=== PATIENT | female | born 1940 | race African-American/Black ===

== ENCOUNTER → 2016-10-07 | Outpatient (CLI) | payer MEDICARE | LOC: RAD 07:56 | PROVIDERS: ATTEND Specialist | DX: C05.0 Malignant neoplasm of hard palate (principal) | CPT/HCPCS: 70491; 82565 ==

== ENCOUNTER → 2017-02-02 | Outpatient (CLI) | payer MEDICARE ==
--- NOTE | 2017-02-02 13:16 | RADIOLOGY REPORT (SQ) ---
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 Reconstructed coronal and sagittal MPR images reviewed. All images stored on PACS. All CT scanners at this facility use dose modulation, iterative reconstruction, and/or weight based d osing when appropriate to reduce radiation dose to as low as reasonably achievable (ALARA). [facility]: Dose Right [facility]: CareDose [facility]: Dose Right [facility]: Teradose 4D [facility]: Informous CONTRAST TYPE AND DOSE: contrast/concentration: Isovue 370.00 mg/ml; Total Contrast Delivered: 75.0 ml; Total Saline Delivered: 55.0 ml RENAL FUNCTION: Creatinine 0.8 RADIATION DOSE: 18.6 . LIMITATIONS: None. FINDINGS: Patient is post resection of the right hard palate, medial wall maxillary sinus, nasal sep edelmira, and right maxillary alveolar ridge. SKULL BASE: Old right temporal craniotomy. Inferior brain parenchyma in the field of view unremarkab le. MAJOR SALIVARY GLANDS: No solid or cystic masses. No inflammatory changes. LYMPHADENOPATHY: No adenopathy. MUCOSAL MASSES OR ASYMMETRY: No mucosal masses or asymmetry. LARYNX/CORDS: No abnormal findings. VASCULAR STRUCTURES: The major vessels are patent. LUNG APICES: Clear. BONES: Diffuse degenerative changes in the cervical spine THYROID: Stable 8 mm right lobe thyroid nodule, 7 mm thyroid isthmus nodule, 11 mm left lobe thyroid nodule PARANASAL SINUSES: Clear. OTHER: No other significant finding. IMPRESSION: Postsurgical changes. No CT evidence of recurrent tumor TECHNICAL DOCUMENTATION: JOB ID: [id number] Quality ID # [id number]: Final reports with documentation of one or more dose reduction techniques (e.g., Au tomated exposure control, adjustment of the mA and/or kV according to patient size, use of iterative reconstruction technique) 2010 [employer]- All Rights Reserved
== END ==
LOC: RAD 08:02
PROVIDERS: ATTEND Specialist
DX: C05.0 Malignant neoplasm of hard palate (principal)
CPT/HCPCS: 70491

== ENCOUNTER → 2017-03-17 | Outpatient (CLI) | payer MEDICARE ==
--- NOTE | 2017-03-17 10:33 | RADIOLOGY REPORT (SQ) ---
EXAM DESCRIPTION: U/S ABD AORTIC SCREENING COMPLETED DATE/TIME: 03/17/2017 8:46 am REASON FOR STUDY: ENCOUNTER FOR SCREENING FOR CARDIOVASCULAR DISORDERS Z87.891 PERSONAL HISTORY OF NICOTINE DEPENDENCE Z13.6 ENCOUNTER FOR SCREENING FOR CARDIOVASCULAR DISORDERS COMPARISON: None. TECHNIQUE: Static and dynamic grayscale images acquired of the aorta and stored on PACs. Selected co chantel Doppler and spectral images recorded. LIMITATIONS: None. FINDINGS: AORTIC CALIBER MAXIMAL PROXIMAL: 2.2 cm. MID: 2.0 cm. DISTAL: 1.9 cm. ILIAC DIAMETER RIGHT: 1.2 cm. LEFT: 1.0 cm. OTHER: No other significant finding. IMPRESSION: NO ABDOMINAL AORTIC ANEURYSM. TECHNICAL DOCUMENTATION: JOB ID: [id number] [employer]- All Rights Reserved
== END ==
LOC: RAD 08:03
PROVIDERS: ATTEND Physician Assistant
DX: Z13.6 Encounter for screening for cardiovascular disorders (principal); Z87.891 Personal history of nicotine dependence
CPT/HCPCS: 76706

== ENCOUNTER → 2017-04-22 | Outpatient (CLI) | payer MEDICARE ==
--- NOTE | 2017-04-22 10:55 | WOMENS IMAGING REPORT ---
EXAM DESCRIPTION: BONE DENSITY HIP/SPINE COMPLETED DATE/TIME: 04/22/2017 8:57 am REASON FOR STUDY: AGE-RELATED OSTEOPROSIS;M81.0 Z12.31 ENCNTR SCREEN MAMMOGRAM FOR MALIGNANT NEOPLA SM OF MELISSA M81.0 AGE-RELATED OSTEOPOROSIS W/O CURRENT PATHOLOGICAL FRAC COMPARISON: None. TECHNIQUE: Dual-Energy X-ray Absorptiometry (DEXA) of the AP Spine and Hip. LIMITATIONS: None. FINDINGS: LUMBAR SPINE: The bone mineral density (BMD) measured from L1-L4 in the AP projection correlates with a T-score of +1.8, which is normal as defined by the World Health Organization. Please note that this does includ e vertebral body endplate sclerosis and facet arthropathy HIP: The bone mineral density (BMD) measured in the left femoral neck at the hip correlates with a T-score of -1.5, which is osteopenic as defined by the World Health Organization. IMPRESSION: 1. LUMBAR SPINE: Normal 2. HIP: Osteopenic COMMENT: The World Health Organization defines low BMD as follows: T-score: Normal: Greater than -1.0 Osteopenia: Between -1.0 and -2.5 Osteoporosis: Less than -2.5 without fractures Established osteoporosis: Less than -2.5 with fractures In general, you may wish to consider: Diagnosis Treatment Follow-up DEXA Normal BMD Prevention 2-3 years Osteopenia Prevention/Therapy 1-2 years Osteoporosis Therapy Yearly TECHNICAL DOCUMENTATION: JOB ID: [id number] [employer]- All Rights Reserved
--- NOTE | 2017-04-22 19:15 | WOMENS IMAGING REPORT ---
EXAM DESCRIPTION: 3D SCREENING MAMMO BILAT COMPLETED DATE/TIME: 04/22/2017 8:57 am REASON FOR STUDY: ROUTINE SCREENING; Z12.31 Z12.31 ENCNTR SCREEN MAMMOGRAM FOR MALIGNANT NEOPLASM O F MELISSA M81.0 AGE-RELATED OSTEOPOROSIS W/O CURRENT PATHOLOGICAL FRAC COMPARISON: Multiple since 2008 TECHNIQUE: Standard craniocaudal and mediolateral oblique views of each breast recorded using digita l acquisition and breast tomosynthesis. LIMITATIONS: None. FINDINGS: No masses, calcifications or architectural distortion. No areas of suspicion. Read with the assistance of CAD. .[facility] - R2 Cenova Version 1.3 .[facility] - R2 Cenova Version 1.3 .[facility] - R2 Cenova Version 2.4 .[facility] [place]2 Cenova Version 2.4 .[facility] - R2 Ble[employer] Maker Version 9.2 IMPRESSION: NORMAL MAMMOGRAM. BIRADS 1. BREAST DENSITY: b. There are scattered areas of fibroglandular density. BIRAD: 1 NEGATIVE RECOMMENDATION: ROUTINE SCREENING Please continue yearly bilateral screening tomosynthesis in March 2018 COMMENT: The patient has been notified of the results by letter per SA requirements. Additional no tification policies are in place for contacting patient with suspicious or incomplete findings. Quality ID #225: The [employer] recommends an annual screening mammogram for women aged 40 years or over. This facility utilizes a reminder system to ensure that all patients receive reminder letters, and/or direct phone calls for appointments. This includes reminders for routine scr eening mammograms, diagnostic mammograms, or other Breast Imaging Interventions when appropriate. Th is patient will be placed in the appropriate reminder system. The [employer] (ACR) has developed recommendations for screening MRI of the breast s in certain patient populations, to be used in conjunction with mammography. Breast MRI surveillanc e may be appropriate for women with more than 20% lifetime risk of developing breast cancer as deter mined by genetic testing, significant family history of the disease, or history of mantle radiation f or Hodgkins Disease. ACR Practice Guidelines 2008. DBT Technology DBT is a type of tomographic mammography. With conventional mammography, overlapping breast tissue ma y make lesions difficult to detect, even with good compression. DBT uses an x-ray tube that rotates a round the breast, taking images at different angles. These images are then combined to create thin sl ices of the breast that the radiologist can view as a 3D reconstruction. The [employer] unit can perform full-field digital mammograms (2D imaging); or DBT (3D imaging); or both, in a combination mode that quickly performs both the mammogram and the tomosynthesis scan while the breast is still compressed. PQRS 6045F: Fluoroscopic imaging is not utilized for breast tomosynthesis. TECHNICAL DOCUMENTATION: FINDING NUMBER: (1) ASSESSMENT: (1) JOB ID: [id number] [employer]- All Rights Reserved
== END ==
LOC: WI 08:37
PROVIDERS: ATTEND Physician Assistant
DX: Z12.31 Encounter for screening mammogram for malignant neoplasm of breast (principal); M81.0 Age-related osteoporosis without current pathological fracture
CPT/HCPCS: 77063; 77080; G0202; 77067

== ENCOUNTER → 2017-05-08 | Outpatient (CLI) | payer MEDICARE ==
--- NOTE | 2017-05-08 10:56 | RADIOLOGY REPORT (SQ) ---
EXAM DESCRIPTION: LUMBAR SPINE COMPLETE COMPLETED DATE/TIME: 05/08/2017 10:29 am REASON FOR STUDY: LOW BACK PAIN M54.5 LOW BACK PAIN COMPARISON: None. NUMBER OF VIEWS: Five views including obliques. TECHNIQUE: AP, lateral, oblique, and sacral radiographic images acquired of the lumbar spine. LIMITATIONS: None. FINDINGS: MINERALIZATION: Normal. SEGMENTATION: Normal. No transitional anatomy. ALIGNMENT: Normal. VERTEBRAE: Maintained height. No fracture or worrisome bone lesion. DISCS: Severe disc degeneration L1-L2, L2-L3. Moderate L3-L4. Mild L5-S1. POSTERIOR ELEMENTS: Moderate to severe multilevel facet arthropathy HARDWARE: None in the spine. PARASPINAL SOFT TISSUES: Normal. PELVIS: Intact as visualized. No fractures or worrisome bone lesions. SI joints intact. OTHER: No other significant finding. IMPRESSION: Multilevel moderate to severe disc degeneration except mild at L5-S1. Multilevel facet arthropathy. TECHNICAL DOCUMENTATION: JOB ID: [id number] [employer]- All Rights Reserved
== END ==
LOC: OD 10:05
PROVIDERS: ATTEND Family Medicine
DX: M54.5 Low back pain (principal)
CPT/HCPCS: 72110

== ENCOUNTER → 2017-06-12 | Outpatient (CLI) | payer MEDICARE ==
--- NOTE | 2017-06-12 09:56 | RADIOLOGY REPORT (SQ) ---
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 Reconstructed coronal and sagittal MPR images reviewed. All images stored on PAC S. All CT scanners at this facility use dose modulation, iterative reconstruction, and/or weight based d osing when appropriate to reduce radiation dose to as low as reasonably achievable (ALARA). [facility]: Dose Right [facility]: CareDose [facility]: Dose Right [facility]: Teradose 4D [facility]: Whole Optics RADIATION DOSE: 18.6 mGy. 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 The patient was scanned with the palate prosthesis in place. There is no lumpy soft tissue worrisome for recurrence along the right posterior nasal floor on axial images 25-29. SKULL BASE: Intact. MAJOR SALIVARY GLANDS: No solid or cystic masses. No inflammatory changes. LYMPHADENOPATHY: No adenopathy. MUCOSAL MASSES OR ASYMMETRY: No mucosal masses or asymmetry. LARYNX/CORDS: No abnormal findings. LUNG APICES: Clear. BONES: Intact. THYROID: Normal size. Heterogeneously dense without discrete mass. PARANASAL SINUSES: No air-fluid levels worrisome for sinusitis. No mucosal nodularity worrisome for recurrent tumor. Minimal stable mucous membrane thickening in the posterior aspect of the right and left maxillary sinuses. Post resection of the lower half of the nasal septum, right hard palate, med ial wall right maxillary sinus, right inferior turbinate. OTHER: No other significant finding. IMPRESSION: Limited study. No CT evidence of recurrent right hard palate tumor of on today's study. No cervical adenopathy. TECHNICAL DOCUMENTATION: JOB ID: [id number] Quality ID # 436: Final reports with documentation of one or more dose reduction techniques (e.g., Au tomated exposure control, adjustment of the mA and/or kV according to patient size, use of iterative reconstruction technique) 2010 [employer]- All Rights Reserved
== END ==
LOC: RAD 07:42
PROVIDERS: ATTEND Internal Medicine
DX: C05.0 Malignant neoplasm of hard palate (principal)
CPT/HCPCS: 70490

== ENCOUNTER 2017-07-29 07:28 | Day surgery (SDC) | payer MEDICARE ==
[~2017-07-29 07:28] MED LIST: CHONDR SU A NA/HYALUR INTRAOC KIT (SURGICARE) ONE; EPINEPHRINE INJ/PF 1 MG/1 ML AMPULE ONE; FENTANYL CITRATE INJ/PF 100 MCG/2 ML AMPUL ONE; KETOROLAC TROMETHAMINE 0.45% 4 DROP/0.4 ML DROPERETTE OS PRN; LIDOCAINE 1% INJ-PF (10 MG/ML) 30 ML SDV ONE; MIDAZOLAM 2 MG/2 ML INJ ONE; ONDANSETRON HCL INJ/PF 4 MG/2 ML SDV ONE
[2017-07-29] MEDS: TETRACAINE HCL 0.5% OPH SOLN 0.6 ML DROPERETTE OS PRN ×3 (07:52→08:10)
[2017-07-29] MEDS: CYCLOPENTOLATE 0.2%/PHENYLEPHRINE 1% OPH SOLN 2 ML OS PRN ×3 (07:52→08:08)
[2017-07-29] MEDS: TROPICAMIDE 1% OPH SOLN 3 ML OS PRN ×3 (07:53→08:08)
[2017-07-29] MEDS: BESIFLOXACIN HCL 0.6% OPH SUSP 5 ML BOTTLE OS PRN ×4 (07:53→08:39)
[2017-07-29] MEDS: TOBRAMYCIN SULFATE/DEXAMETH OPH OINTMENT 3.5 GM ONE ×2 (08:39)
[2017-07-29] MEDS ORDERED: CHONDR SU A NA/HYALUR SOD 0.5 ML DISP.SYRIN ONE (14:26)
== END 2017-07-29 09:41 | disposition home or self-care (01) ==
LOC: SC 07:28
PROVIDERS: ATTEND Ophthalmology
PROC: 089330Z Drainage of Left Anterior Chamber with Drainage Device, Percutaneous Approach (ICD-10-PCS; 2017-07-29)
PROC: 08RK3JZ Replacement of Left Lens with Synthetic Substitute, Percutaneous Approach (ICD-10-PCS; principal; 2017-07-29 08:15)
DX: H25.12 Age-related nuclear cataract, left eye (principal); H40.1121 Primary open-angle glaucoma, left eye, mild stage; M19.90 Unspecified osteoarthritis, unspecified site; E11.9 Type 2 diabetes mellitus without complications; I10 Essential (primary) hypertension; E78.00 Pure hypercholesterolemia, unspecified; Z79.82 Long term (current) use of aspirin; Z79.899 Other long term (current) drug therapy; Z79.84 Long term (current) use of oral hypoglycemic drugs; F17.210 Nicotine dependence, cigarettes, uncomplicated; K21.9 Gastro-esophageal reflux disease without esophagitis; Z85.828 Personal history of other malignant neoplasm of skin
CPT/HCPCS: 66984; 0191T; 82962; C1783; V2630; J2250; J3490 ×4; A9270; J0171; J3010; J2405; 142

== ENCOUNTER 2017-08-05 20:56 | Emergency (ER) | payer MEDICARE ==
[2017-08-05 23:26] LABS: ABSOLUTE BASOPHILS # (AUTO) 0.1 10^3/uL (0.0-0.2); ABSOLUTE EOSINOPHILS # (AUTO) 0.3 10^3/uL (0.0-0.6); ABSOLUTE LYMPHOCYTES (AUTO) 0.6 10^3/uL (0.5-4.7); ABSOLUTE MONOCYTES (AUTO) 0.5 10^3/uL (0.1-1.4); ABSOLUTE NEUT (AUTO) 3.7 10^3/uL (1.7-8.2); BASOPHILS % (AUTO) 1.5 % (0-2); EOSINOPHILS % (AUTO) 6.6 % (0-6); HEMATOCRIT 34.5 % (36.0-47.0); HEMOGLOBIN 11.1 g/dL (12.0-15.5); LYMPHOCYTES % (AUTO) 10.7 % (13-45); MEAN CORPUSCULAR HEMOGLOBIN 29.7 pg (27.0-33.4); MEAN CORPUSCULAR HGB CONC 32.2 g/dL (32.0-36.0); MEAN CORPUSCULAR VOLUME 92 fl (80-97); MONOCYTES % (AUTO) 9.3 % (3-13); PLATELET COUNT 393 10^3/uL (150-450); RED BLOOD COUNT 3.75 10^6/uL (3.72-5.28); SEGMENTED NEUTROPHILS % (AUTO) 71.9 % (42-78); TOTAL CELLS COUNTED % (AUTO) 100 %; WHITE BLOOD COUNT 5.2 10^3/uL (4.0-10.5)
[2017-08-05 23:30] LABS: PROTHROMBIN TIME 12.8 SEC (11.4-15.4)
[2017-08-05 23:31] LABS: PARTIAL THROMBOPLASTIN TIME 32.9 SEC (23.5-35.8)
[2017-08-05 23:37] LABS: ALANINE AMINOTRANSFERASE 11 U/L (9-52); ALKALINE PHOSPHATASE 86 U/L (38-126); ANION GAP 11 (5-19); ASPARTATE AMINO TRANSFERASE 18 U/L (14-36); BILIRUBIN,DIRECT 0.3 mg/dL (0.0-0.4); BILIRUBIN,TOTAL 0.3 mg/dL (0.2-1.3); BLOOD UREA NITROGEN 17 mg/dL (7-20); CALCIUM 10.2 mg/dL (8.4-10.2); CARBON DIOXIDE 28 mmol/L (22-30); CHLORIDE 106 mmol/L (98-107); GLUCOSE 91 mg/dL (75-110); POTASSIUM 4.2 mmol/L (3.6-5.0)
--- NOTE | 2017-08-06 03:26 | ER Document Report ---
HPI - HPI Patient complains to provider of: Nosebleed Pain Level: Denies Context: Patient is a 77-year-old female presents emergency department with a chief complaint of bleeding. Patient had a ear nose and throat resection of hard palate of her mouth for previous cancer that his left knee base of her nose exposed. She supposed to wear prosthesis when she eats. States that this evening she was eating an apple she cut it up she is trying to chew it got stuck in between her turbinates. Her daughter states that there is a lot of blood so they called EMS. Bleeding has since stopped and has not returned since the patient has been waiting in the lobby. She states she feels fine now on just 1 to have it looked at. - REPRODUCTIVE Reproductive: DENIES: : - DERM Skin Color: Normal Past Medical History - Social History Smoking Status: Former Smoker Chew tobacco use (# tins/day): No Frequency of alcohol use: Rare Drug Abuse: None Family History: Reviewed & Not Pertinent Patient has suicidal ideation: No Patient has homicidal ideation: No - Past Medical History Cardiac Medical History: Reports: Hx Hypercholesterolemia, Hx Hypertension Denies: Hx Heart Attack Pulmonary Medical History: Denies: Hx Asthma Neurological Medical History: Denies: Hx Cerebrovascular Accident, Hx Seizures Endocrine Medical History: Reports: Hx Diabetes Mellitus Type 2 Renal/ Medical History: Denies: Hx Peritoneal Dialysis GI Medical History: Denies: Hx Hepatitis, Hx Hiatal Hernia, Hx Ulcer Psychiatric Medical History: Denies: Hx Depression Infectious Medical History: Denies: Hx Hepatitis Past Surgical History: Reports: Hx Hysterectomy, Hx Nose Surgery. Denies: Hx Mastectomy, Hx Open Heart Surgery, Hx Pacemaker - Immunizations Hx Diphtheria, Pertussis, Tetanus Vaccination: Yes Vertical Provider Document - CONSTITUTIONAL Agree With Documented VS: Yes Notes: PHYSICAL EXAM GENERAL: Alert, interacts well. HEENT: NCAT, MMM, hard palate of the patient's mouth gone exposing her nasal turbinates without any evidence of active bleeding minimal blood clotting at the edge of the tissue. Uvula midline, no evidence of retropharyngeal dried blood down the posterior pharynx airway patent. No evidence of tonsillar enlargement, LUNGS: Clear to auscultation bilaterally, no wheezes, rales, or rhonchi. No respiratory distress. HEART: Regular rate and rhythm. No murmurs, gallops, or rubs. NEUROLOGICAL: Alert and oriented x4. Normal speech. PSYCH: Normal affect, normal mood. SKIN: Warm, dry, normal turgor. No rashes or lesions noted. - INFECTION CONTROL TRAVEL OUTSIDE OF THE [place] IN LAST 30 DAYS: No - RESPIRATORY O2 Sat by Pulse Oximetry: 100 Course - Re-evaluation Re-evalutation: 08/06/17 03:24 Patient is a 77-year-old female is hemodynamically stable, no acute distress and afebrile. Presentation this evening is consistent with a nosebleed secondary to trauma from chewing without her prosthesis. Discussed with family the anatomy of the nose and the sensitive blood vessels in place there. Discussed with the patient and family that if she cannot smash the food with a fork that she needs to use her prosthesis in order to protect this tissue from getting damaged in the future. Discussed with them to continue doing her home cleansing care as they normally do to follow-up with her primary care doctor and director of research center as scheduled. - Vital Signs Vital signs: Temp Pulse Resp BP Pulse Ox 98.1 F 81 20 145/77 H 100 08/05/17 20:56 08/05/17 20:56 08/05/17 20:56 08/05/17 20:56 08/05/17 20:56 - Laboratory Result Diagrams: 08/05/17 23:00 08/05/17 23:00 Laboratory results interpreted by me: 08/05/17 23:00 Hgb 11.1 L Hct 34.5 L RDW 16.0 H Lymphocytes % 10.7 L Eosinophils % 6.6 H Discharge - Discharge Clinical Impression: Epistaxis Condition: Good Disposition: HOME, SELF-CARE Additional Instructions: Your presentation to the ER today was consistent with hard foods being pressed against very sensitive tissue in your nose. If you cannot crush the food with a fork please use your prosthetic. Please return to the emergency department with any continued bleeding does not stop with any direct pressure otherwise follow-up with your primary care doctor. Referrals: CRISTOFER DÍAZ MD [Primary Care Provider] - Follow up as needed
[2017-08-06 03:47] VITALS: BP 130/67
== END 2017-08-06 03:50 | disposition home or self-care (01) ==
LOC: ER 20:56
DX: R04.0 Epistaxis (principal); E11.9 Type 2 diabetes mellitus without complications; I10 Essential (primary) hypertension; Z90.09 Acquired absence of other part of head and neck; Z85.9 Personal history of malignant neoplasm, unspecified; Z87.891 Personal history of nicotine dependence
CPT/HCPCS: 36415; 80053; 85025; 85610; 85730; 99283

== ENCOUNTER 2017-08-12 07:16 | Day surgery (SDC) | payer MEDICARE ==
[~2017-08-12 07:16] MED LIST changes: -CHONDR SU A NA/HYALUR INTRAOC KIT (SURGICARE) ONE; -EPINEPHRINE INJ/PF 1 MG/1 ML AMPULE ONE; -FENTANYL CITRATE INJ/PF 100 MCG/2 ML AMPUL ONE; +KETOROLAC TROMETHAMINE 0.45% 4 DROP/0.4 ML DROPERETTE OD PRN; -KETOROLAC TROMETHAMINE 0.45% 4 DROP/0.4 ML DROPERETTE OS PRN; -LIDOCAINE 1% INJ-PF (10 MG/ML) 30 ML SDV ONE; -MIDAZOLAM 2 MG/2 ML INJ ONE; -ONDANSETRON HCL INJ/PF 4 MG/2 ML SDV ONE
[2017-08-12] MEDS ORDERED: LIDOCAINE 1% INJ-PF (10 MG/ML) 30 ML SDV ONE (07:17)
[2017-08-12] MEDS ORDERED: CHONDR SU A NA/HYALUR INTRAOC KIT (SURGICARE) ONE (07:17)
[2017-08-12] MEDS ORDERED: EPINEPHRINE INJ/PF 1 MG/1 ML AMPULE ONE (07:17)
[2017-08-12] MEDS ORDERED: TOBRAMYCIN SULFATE/DEXAMETH OPH OINTMENT 3.5 GM ONE (07:17)
[2017-08-12] MEDS: TROPICAMIDE 1% OPH SOLN 3 ML OD PRN ×3 (07:50→08:25)
[2017-08-12] MEDS: CYCLOPENTOLATE 0.2%/PHENYLEPHRINE 1% OPH SOLN 2 ML OD PRN ×3 (07:50→08:25)
[2017-08-12] MEDS: BESIFLOXACIN HCL 0.6% OPH SUSP 5 ML BOTTLE OD PRN ×3 (07:51→08:53)
[2017-08-12] MEDS: TETRACAINE HCL 0.5% OPH SOLN 0.6 ML DROPERETTE OD PRN ×3 (07:52→08:53)
[2017-08-12] MEDS ORDERED: MIDAZOLAM 2 MG/2 ML INJ ONE (08:19)
[2017-08-12] MEDS ORDERED: FENTANYL CITRATE INJ/PF 100 MCG/2 ML AMPUL ONE (08:20)
[2017-08-12] MEDS ORDERED: CHONDR SU A NA/HYALUR SOD 0.5 ML DISP.SYRIN ONE (09:07)
== END 2017-08-12 09:45 | disposition home or self-care (01) ==
LOC: SC 07:16
PROVIDERS: ATTEND Ophthalmology
PROC: 089230Z Drainage of Right Anterior Chamber with Drainage Device, Percutaneous Approach (ICD-10-PCS; 2017-08-12)
PROC: 08RJ3JZ Replacement of Right Lens with Synthetic Substitute, Percutaneous Approach (ICD-10-PCS; principal; 2017-08-12 08:30)
DX: H25.11 Age-related nuclear cataract, right eye (principal); H40.1111 Primary open-angle glaucoma, right eye, mild stage; M19.90 Unspecified osteoarthritis, unspecified site; E11.9 Type 2 diabetes mellitus without complications; I10 Essential (primary) hypertension; K21.9 Gastro-esophageal reflux disease without esophagitis; E78.00 Pure hypercholesterolemia, unspecified; F17.210 Nicotine dependence, cigarettes, uncomplicated; Z79.82 Long term (current) use of aspirin; Z79.84 Long term (current) use of oral hypoglycemic drugs; Z79.899 Other long term (current) drug therapy; Z85.828 Personal history of other malignant neoplasm of skin; Z98.42 Cataract extraction status, left eye
CPT/HCPCS: 0191T; 66984; 142; 82962; C1783; J0171; J2250; J3010; J3490; V2630

== ENCOUNTER 2017-10-24 15:31 | Observation (INO) | payer MEDICARE ==
--- NOTE | 2017-10-24 17:41 | ER Document Report ---
ED General <TIAGO CALHOUN - Last Filed: 10/24/17 21:21> - General Mode of Arrival: Ambulatory Information source: Patient, Relative TRAVEL OUTSIDE OF THE [place] IN LAST 30 DAYS: No - HPI Onset: Just prior to arrival Onset/Duration: Sudden Quality of pain: No pain Severity: None Associated symptoms: None Exacerbated by: Denies Relieved by: Sitting Similar symptoms previously: No Recently seen / treated by doctor: No <SUKI BARTON - Last Filed: 10/25/17 06:17> - General Chief Complaint: Dizziness Stated Complaint: BLOOD PRESSURE CONCERNS Time Seen by Provider: 10/24/17 17:34 Notes: 77-year-old female with a history of hypertension, hyperlipidemia, diabetes, gastric ulcer, nasopharyngeal cancer (in remission) presents from home after an episode of "lightheadedness". Patient states that this morning she was going about her usual routine. She ate breakfast and then use the bathroom and had a large bowel movement. She states she was getting ready to go out with her when she had an episode of feeling "dizzy". Patient states this lasted for approximately 1 hour and was relieved with sitting down. She denies any prior similar symptoms. When asked to describe the dizziness she states she felt lightheaded like she may pass out. She denies any preceding chest pain shortness of breath, visual changes, diaphoresis, nausea, abdominal pain, palpitations. she denies any black or bloody stools. she denies those symptoms now. When her got home she checked her blood pressure and it was 105/59 which is relatively low for her. She also checked her glucose which was 79 which she thought was odd after eating a large breakfast of waffles. States she had a recent endoscopy and colonoscopy and was told she had a "bleeding ulcer". She denies any changes in her medications. She currently takes metformin 500 mg twice daily, amlodipine unknown dose twice daily and aspirin daily. (SUKI BARTON) - Related Data Allergies/Adverse Reactions: No Known Allergies Allergy (Verified 10/24/17 15:35) Past Medical History - Social History Smoking Status: Unknown if Ever Smoked Family History: Reviewed & Not Pertinent Patient has suicidal ideation: No Patient has homicidal ideation: No - Past Medical History Cardiac Medical History: Reports: Hx Hypercholesterolemia, Hx Hypertension - MEDICATED Denies: Hx Heart Attack Pulmonary Medical History: Denies: Hx Asthma Neurological Medical History: Denies: Hx Cerebrovascular Accident, Hx Seizures Endocrine Medical History: Reports: Hx Diabetes Mellitus Type 2 Renal/ Medical History: Denies: Hx Peritoneal Dialysis GI Medical History: Denies: Hx Hepatitis, Hx Hiatal Hernia, Hx Ulcer Psychiatric Medical History: Denies: Hx Depression Infectious Medical History: Denies: Hx Hepatitis Past Surgical History: Reports: Hx Hysterectomy, Hx Nose Surgery. Denies: Hx Mastectomy, Hx Open Heart Surgery, Hx Pacemaker - Immunizations Hx Diphtheria, Pertussis, Tetanus Vaccination: Yes <SUKI BARTON - Last Filed: 10/25/17 06:17> Physical Exam - Rectal Tenderness: No - Brown stool Hemorrhoids: External - Extremities General upper extremity: Normal inspection, Nontender, Normal color, Normal ROM , Normal temperature General lower extremity: Normal inspection, Nontender, Normal color, Normal ROM , Normal temperature, Normal weight bearing. 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 Barton. CBC has a left shift but no leukocytosis, chemistries show slightly acute renal failure BUN of 27 creatinine 1.12, cardiac enzymes are negative, urinalysis shows large leukocyte esterase with only 1 squamous epithelial cell, chest x- ray shows no acute process. I am concerned that the patient has had persistent hypotension that this may be associated with her urinary tract infection. Patient does not currently meet sepsis criteria however I am not comfortable discharging a 77-year-old with hypotension and source of infection home, patient is given a dose of Rocephin IV and discussed with Dr. Pete who is covering for Dr. Jackson who agrees to admit the patient to his service on the telemetry care unit. Patient and family members are agreeable to this plan. ( TIAGO CALHOUN) Laboratory 10/24/17 10/24/17 10/24/17 17:10 17:10 17:10 WBC 7.4 RBC 4.20 Hgb 12.2 Hct 38.4 MCV 92 MCH 29.0 MCHC 31.7 L RDW 17.0 H Plt Count 218 Seg Neutrophils % 87.1 H Lymphocytes % 5.5 L Monocytes % 4.7 Eosinophils % 2.3 Basophils % 0.4 Absolute Neutrophils 6.4 Absolute Lymphocytes 0.4 L Absolute Monocytes 0.3 Absolute Eosinophils 0.2 Absolute Basophils 0.0 Sodium 145.0 Potassium 4.4 Chloride 107 Carbon Dioxide 22 Anion Gap 16 BUN 27 H Creatinine 1.12 Est GFR ( Amer) 57 L Est GFR (Non-Af Amer) 47 L Glucose 98 Calcium 10.4 H Total Bilirubin 0.3 Direct Bilirubin 0.3 Neonat Total Bilirubin Not Reportable Neonat Direct Bilirubin Not Reportable Neonat Indirect Bili Not Reportable AST 20 ALT 20 Alkaline Phosphatase 111 Creatine Kinase 67 CK-MB (CK-2) 0.87 Troponin I < 0.012 Total Protein 7.9 Albumin 4.6 Stool Occult Blood 10/24/17 17:55 WBC RBC Hgb Hct MCV MCH MCHC RDW Plt Count Seg Neutrophils % Lymphocytes % Monocytes % Eosinophils % Basophils % Absolute Neutrophils Absolute Lymphocytes Absolute Monocytes Absolute Eosinophils Absolute Basophils Sodium Potassium Chloride Carbon Dioxide Anion Gap BUN Creatinine Est GFR ( Amer) Est GFR (Non-Af Amer) Glucose Calcium Total Bilirubin Direct Bilirubin Neonat Total Bilirubin Neonat Direct Bilirubin Neonat Indirect Bili AST ALT Alkaline Phosphatase Creatine Kinase CK-MB (CK-2) Troponin I Total Protein Albumin Stool Occult Blood NEGATIVE 10/24/17 18:15 Patient is orthostatic negative. Rectal exam showed brown stool Hemoccult pending. 10/24/17 18:47 CBC is without anemia or leukocytosis. There are no electrolyte abnormalities. Stool is Hemoccult negative. Patient signed out o Dr Calhoun with UA and additional labs pending. 10/25/17 06:15 (SUKI BARTON) - Vital Signs Vital signs: Temp Pulse Resp BP Pulse Ox 98.0 F 96 15 128/85 H 100 10/24/17 15:37 10/24/17 18:13 10/25/17 06:01 10/25/17 06:01 10/25/17 06:01 - Laboratory Laboratory results interpreted by me: 10/24/17 10/24/17 10/24/17 17:10 17:10 20:00 MCHC 31.7 L RDW 17.0 H Seg Neutrophils % 87.1 H Lymphocytes % 5.5 L Absolute Lymphocytes 0.4 L BUN 27 H Est GFR ( Amer) 57 L Est GFR (Non-Af Amer) 47 L Calcium 10.4 H Ur Leukocyte Esterase LARGE H Discharge - Discharge Admitting Provider: Manuel - With Dr. Pete covering Unit Admitted: Telemetry <TIAGO CALHOUN - Last Filed: 10/24/17 21:21> <SUKI BARTON - Last Filed: 10/25/17 06:17> - Discharge Clinical Impression: Acute kidney injury Urinary tract infection Qualifiers: Urinary tract infection type: acute cystitis Hematuria presence: without hematuria Qualified Code(s): N30.00 - Acute cystitis without hematuria Hypotension Qualifiers: Hypotension type: unspecified hypotension type Qualified Code(s): I95.9 - Hypotension, unspecified Condition: Fair Disposition: ADMITTED INPATIENT
[2017-10-24] MEDS ORDERED: NORMAL SALINE 1000 ML 1,000 ML IV ONE (18:04)
[2017-10-24 18:12] LABS: ABSOLUTE EOSINOPHILS # (AUTO) 0.2 10^3/uL (0.0-0.6); ABSOLUTE LYMPHOCYTES (AUTO) 0.4 10^3/uL (0.5-4.7); ABSOLUTE MONOCYTES (AUTO) 0.3 10^3/uL (0.1-1.4); ABSOLUTE NEUT (AUTO) 6.4 10^3/uL (1.7-8.2); BASOPHILS % (AUTO) 0.4 % (0-2); EOSINOPHILS % (AUTO) 2.3 % (0-6); HEMATOCRIT 38.4 % (36.0-47.0); HEMOGLOBIN 12.2 g/dL (12.0-15.5); LYMPHOCYTES % (AUTO) 5.5 % (13-45); MEAN CORPUSCULAR HGB CONC 31.7 g/dL (32.0-36.0); MEAN CORPUSCULAR VOLUME 92 fl (80-97); MONOCYTES % (AUTO) 4.7 % (3-13); PLATELET COUNT 218 10^3/uL (150-450); SEGMENTED NEUTROPHILS % (AUTO) 87.1 % (42-78); TOTAL CELLS COUNTED % (AUTO) 100 %; WHITE BLOOD COUNT 7.4 10^3/uL (4.0-10.5)
[2017-10-24 18:32] LABS: ALANINE AMINOTRANSFERASE 20 U/L (9-52); ALBUMIN 4.6 g/dL (3.5-5.0); ALKALINE PHOSPHATASE 111 U/L (38-126); ANION GAP 16 (5-19); ASPARTATE AMINO TRANSFERASE 20 U/L (14-36); BILIRUBIN,DIRECT 0.3 mg/dL (0.0-0.4); BILIRUBIN,TOTAL 0.3 mg/dL (0.2-1.3); BLOOD UREA NITROGEN 27 mg/dL (7-20); CALCIUM 10.4 mg/dL (8.4-10.2); CARBON DIOXIDE 22 mmol/L (22-30); CHLORIDE 107 mmol/L (98-107); CREATINE KINASE 67 U/L (30-135); GLUCOSE 98 mg/dL (75-110); POTASSIUM 4.4 mmol/L (3.6-5.0); TOTAL PROTEIN 7.9 g/dL (6.3-8.2)
[2017-10-24 18:44] LABS: CREATINE KINASE MB 0.87 ng/mL (<4.55)
[2017-10-24 18:45] LABS: TROPONIN I < 0.012 ng/mL
--- NOTE | 2017-10-24 19:35 | RADIOLOGY REPORT (SQ) ---
EXAM DESCRIPTION: CHEST PA/LAT COMPLETED DATE/TIME: 10/24/2017 7:22 pm REASON FOR STUDY: leg swelling COMPARISON: 03/11/2013 EXAM PARAMETERS: NUMBER OF VIEWS: two views TECHNIQUE: Digital Frontal and Lateral radiographic views of the chest acquired. RADIATION DOSE: NA LIMITATIONS: none FINDINGS: LUNGS AND PLEURA: No opacities, masses or pneumothorax. No pleural effusion. MEDIASTINUM AND HILAR STRUCTURES: No masses or contour abnormalities. HEART AND VASCULAR STRUCTURES: Heart normal size. No evidence for failure. BONES: No acute findings. HARDWARE: None in the chest. OTHER: No other significant finding. IMPRESSION: NO SIGNIFICANT RADIOGRAPHIC FINDING IN THE CHEST. TECHNICAL DOCUMENTATION: JOB ID: [id number] [employer]- All Rights Reserved Reading location - IP/workstation name: [email or web address]
[2017-10-24] MEDS ORDERED: RINGERS SOLUTION,LACTATED 1,000 ML IV ONE (20:01)
[2017-10-24 20:59] LABS: APPEARANCE,URINE CLEAR; BILIRUBIN,URINE NEGATIVE (NEGATIVE); COLOR,URINE YELLOW; GLUCOSE, URINE NEGATIVE (NEGATIVE); KETONES,URINE NEGATIVE (NEGATIVE); URINE SPECIFIC GRAVITY 1.015
[2017-10-24 21:00] LABS: NITRITE,URINE NEGATIVE (NEGATIVE); PROTEIN,URINE NEGATIVE (NEGATIVE); UROBILINOGEN,URINE NEGATIVE mg/dL (<2.0)
[2017-10-24 21:08] LABS: LEUKOCYTE ESTERASE,URINE LARGE (NEGATIVE)
[2017-10-24] MEDS ORDERED: CEFTRIAXONE 1 GM/D5W RTU 1 GM/50 ML RTUPB IV ONE (21:13)
[2017-10-24] MEDS ORDERED: CEFTRIAXONE INJ 1000 MG VIAL ONE (21:25)
--- NOTE | 2017-10-24 22:04 | EKG REPORT ---
SEVERITY:- BORDERLINE ECG - SINUS RHYTHM PROBABLE LEFT ATRIAL ABNORMALITY BORDERLINE T ABNORMALITIES, ANTERIOR LEADS : Confirmed by: Gus Carpenter MD 24-Oct-2017 22:03:34
[2017-10-24] MEDS ORDERED: NORMAL SALINE 1000 ML 1,000 ML IV PRN (22:23)
[2017-10-25] MEDS ORDERED: DEXTROSE 40% GEL 15 GM TUBE PO PRN (06:46)
[2017-10-25] MEDS ORDERED: GLUCAGON,HUMAN RECOMB 1 MG INJ IM PRN (06:46)
[2017-10-25] MEDS ORDERED: DEXTROSE 50%-WATER SYRINGE 25 GM/50 ML DOSE IV PRN (06:46)
[2017-10-25] MEDS ORDERED: INSULIN REG, HUMAN 100 UNIT/ML 3 ML VIAL (PYX) SUBCUT PRN (06:46)
[2017-10-25] MEDS ORDERED: DEXTROSE 50%-WATER SYRINGE 12.5 GM/25 ML DOSE IV PRN (06:46)
[2017-10-25] MEDS ORDERED: DEXTROSE 40% GEL 15 GM TUBE X 2 PO PRN (06:46)
[2017-10-25] MEDS ORDERED: ENOXAPARIN SODIUM INJ 30 MG/0.3 ML DISP.SYRIN SUBCUT SCH (10:00)
[2017-10-25 12:44] VITALS: BP 106/46
--- NOTE | 2017-10-25 14:19 | PDOC H&P ---
History of Present Illness Admission Date/PCP: 10/24/17 21:33 CRISTOFER DÍAZ MD History of Present Illness: ESPINOZA MATOS is a 77 year old female, she has a history of hypertension, hyperlipidemia, diabetes mellitus, gastric ulcer, nasopharyngeal cancer in remission she came to the emergency room for evaluation of lightheadedness. She said she was going about her usual routine, she ate breakfast and then use the bathroom and had a large bowel movement. She said she was getting ready to go out with her when she has experienced episode of lightheadedness she stated that this lasted for approximately 1 hour, was relieved with sitting down. She denies any prior similar symptoms. She denies any antecedent chest pain, shortness of breath ,visual changes, there was no diaphoresis, there is no nausea no abdominal pain, no palpitation. She denies any passage of black stool or bloody stool. She also check her blood pressure at home according to it was 105/59 she will recheck her blood sugar was 79. In the emergency room she was evaluated she was found to have relatively low blood pressure and also abnormal urinalysis does suggest UTI, she does not have sepsis. The emergency room physician want patient admitted into the hospital for evaluation because of relatively low blood pressure associated with a near syncope spells and because she is 77 years of age. Past Medical History Cardiac Medical History: Reports: Hyperlipidema, Hypertension - MEDICATED Endocrine Medical History: Reports: Diabetes Mellitus Type 2 Malignancy Medical History: Reports: Other - Nasopharyngeal cancer Past Surgical History Past Surgical History: Reports: Hysterectomy Social History Smoking Status: Never Smoker Frequency of Alcohol Use: Rare Hx Recreational Drug Use: No Drugs: None Hx Prescription Drug Abuse: No Family History Family History: Reviewed & Not Pertinent Parental Family History Reviewed: Yes Children Family History Reviewed: Yes Sibling(s) Family History Reviewed.: Yes Medication/Allergy Home Medications: Amitriptyline HCl [Elavil 25 mg Tablet] 25 mg PO QHS 10/25/17 Amlodipine Besylate [Norvasc 5 mg Tablet] 5 mg PO Q12 10/25/17 Aspirin [Aspirin EC] 81 mg PO DAILY 10/25/17 Bimatoprost [Lumigan 0.01% Oph Soln 2.5 ml/Bottle] 1 drop OU QHS 10/25/17 Calcium Carbonate [Os-Loc 500 mg Tablet (Oyster-Shell)] 500 mg PO DAILY Ciprofloxacin HCl 500 mg PO BID #10 tablet 10/25/17 Docusate Sodium [Colace 100 mg Capsule] 100 mg PO DAILYP PRN 10/25/17 Gemfibrozil [Lopid] 600 mg PO BID 10/25/17 Metformin HCl [Glucophage 500 mg Tablet] 500 mg PO QAM 10/25/17 Oxycodone HCl/Acetaminophen [Percocet 5-325 mg Tablet] 0.5 tab PO BID 10/25/17 Pantoprazole Sodium [Protonix] 40 mg PO BIDBS 10/25/17 Potassium 99 mg PO BID 10/25/17 Ranitidine HCl [Zantac 150 mg Tablet] 150 mg PO QHS 10/25/17 Valsartan [Diovan 80 mg Tablet] 80 mg PO DAILY #30 tablet 10/25/17 Allergies/Adverse Reactions: No Known Allergies Allergy (Verified 10/24/17 15:35) Review of Systems Constitutional: ABSENT: chills, fever(s), headache(s), weight gain, weight loss Eyes: ABSENT: visual disturbances Ears: ABSENT: hearing changes Cardiovascular: ABSENT: chest pain, dyspnea on exertion, edema, orthropnea, palpitations Respiratory: ABSENT: cough, hemoptysis Gastrointestinal: ABSENT: abdominal pain, constipation, diarrhea, hematemesis, hematochezia, nausea, vomiting Genitourinary: ABSENT: dysuria, hematuria Musculoskeletal: ABSENT: joint swelling Integumentary: ABSENT: rash, wounds Neurological: PRESENT: dizziness. ABSENT: abnormal gait, abnormal speech, confusion, focal weakness, syncope Psychiatric: ABSENT: anxiety, depression, homidical ideation, suicidal ideation Endocrine: ABSENT: cold intolerance, heat intolerance, menstrual abnormalities, polydipsia, polyuria Hematologic/Lymphatic: ABSENT: easy bleeding, easy bruising, lymphadenopathy Physical Exam Vital Signs: Temp Pulse Resp BP Pulse Ox 98.3 F 90 16 106/46 L 100 10/25/17 12:00 10/25/17 12:00 10/25/17 12:00 10/25/17 12:00 10/25/17 12:00 Intake & Output 10/24/17 10/25/17 10/26/17 06:59 06:59 06:59 Intake Total 459 Balance 459 Weight 74.3 kg General appearance: PRESENT: no acute distress, well-developed, well-nourished Head exam: PRESENT: atraumatic, normocephalic Eye exam: PRESENT: conjunctiva pink, EOMI, PERRLA Ear exam: PRESENT: normal external ear exam Mouth exam: PRESENT: moist, tongue midline Neck exam: PRESENT: full ROM Respiratory exam: PRESENT: clear to auscultation ridge Cardiovascular exam: PRESENT: RRR, +S1, +S2 Pulses: PRESENT: normal dorsalis pedis pul, +2 pedal pulses bilateral Vascular exam: PRESENT: normal capillary refill GI/Abdominal exam: PRESENT: normal bowel sounds, soft Rectal exam: PRESENT: deferred Neurological exam: PRESENT: alert, awake, oriented to person, oriented to place , oriented to time, oriented to situation, CN II-XII grossly intact Psychiatric exam: PRESENT: appropriate affect, normal mood Skin exam: PRESENT: dry, intact, warm Results Impressions: Chest X-Ray 10/24/17 18:48 IMPRESSION: NO SIGNIFICANT RADIOGRAPHIC FINDING IN THE CHEST. Assessment & Plan - Diagnosis (1) Urinary tract infection Qualifiers: Urinary tract infection type: acute cystitis Hematuria presence: without hematuria Qualified Code(s): N30.00 - Acute cystitis without hematuria Is this a current diagnosis for this admission?: Yes Plan: The urinalysis suggests UTI, she was given a dose of Rocephin in the emergency room (2) Near syncope Is this a current diagnosis for this admission?: Yes (3) Hypotension Qualifiers: Hypotension type: unspecified hypotension type Qualified Code(s): I95.9 - Hypotension, unspecified Is this a current diagnosis for this admission?: Yes Plan: She has relatively low blood pressure associated with UTI, she is admitted for observation, IV hydration
[2017-10-25] MEDS ORDERED: CEFTRIAXONE SODIUM 1,000 MG in NORMAL SALINE 100 ML IV SCH (22:00)
[2017-10-25] MEDS ORDERED: CEFTRIAXONE 1 GM/D5W RTU 1 GM/50 ML RTUPB IV SCH (22:00)
== END 2017-10-25 15:30 | disposition home or self-care (01) ==
LOC: ER 15:31 → EH 21:33 → INTOOBSV 21:33 → 3N 10-25 06:29
PROVIDERS: ADMIT Family Medicine; ATTEND Family Medicine
DX: N30.00 Acute cystitis without hematuria (principal); I95.9 Hypotension, unspecified; R42 Dizziness and giddiness; I10 Essential (primary) hypertension; E78.5 Hyperlipidemia, unspecified; E11.9 Type 2 diabetes mellitus without complications; N17.9 Acute kidney failure, unspecified
CPT/HCPCS: 93005; 99285; 96361; 96365; 36415; 87040; 87086; 82553; 82550; 85025; 82272; 87077; 80053; 81001; 84484; 83605; 71046; 93010; G0378 ×2; J1650; J7030; J7120; J0696; 87186

== ENCOUNTER 2017-12-18 10:43 | Emergency (ER) | payer MEDICARE ==
[2017-12-18] MEDS ORDERED: NORMAL SALINE 1000 ML 1,000 ML IV ONE (11:02)
--- NOTE | 2017-12-18 11:03 | ER Document Report ---
ED Medical Screen (RME) - General Chief Complaint: Dizziness Stated Complaint: DIZZINESS Time Seen by Provider: 12/18/17 10:58 Mode of Arrival: Ambulatory Information source: Patient Notes: 77-year-old female presents with complaints of lightheadedness dizziness when she standing. Patient notes symptoms started this morning after taking her blood pressure medications which a records note include amlodipine and losartan. Patient's took her blood pressure was 92/55, she did have similar episode day before [facility] where she was admitted with sepsis and UTI per family I have greeted and performed a rapid initial assessment of this patient. A comprehensive ED assessment and evaluation of the patient, analysis of test results and completion of the medical decision making process will be conducted by additional ED providers. PHYSICAL EXAMINATION: GENERAL: Well-appearing, well-nourished and in no acute distress. HEAD: Atraumatic, normocephalic. EYES: Pupils equal round extraocular movements intact, conjunctiva are normal. ENT: Nares patent NECK: Normal range of motion LUNGS: No respiratory distress Musculoskeletal: Normal range of motion NEUROLOGICAL: Normal speech, normal gait. PSYCH: Normal mood, normal affect. SKIN: Warm, Dry, normal turgor, no rashes or lesions noted. TRAVEL OUTSIDE OF THE [place] IN LAST 30 DAYS: No - Related Data Allergies/Adverse Reactions: No Known Allergies Allergy (Verified 12/18/17 10:52) Past Medical History - Past Medical History Cardiac Medical History: Reports: Hx Hypercholesterolemia, Hx Hypertension - MEDICATED Denies: Hx Heart Attack Pulmonary Medical History: Denies: Hx Asthma Neurological Medical History: Denies: Hx Cerebrovascular Accident, Hx Seizures Endocrine Medical History: Reports: Hx Diabetes Mellitus Type 2 Renal/ Medical History: Denies: Hx Peritoneal Dialysis GI Medical History: Denies: Hx Hepatitis, Hx Hiatal Hernia, Hx Ulcer Psychiatric Medical History: Denies: Hx Depression Infectious Medical History: Denies: Hx Hepatitis Past Surgical History: Reports: Hx Hysterectomy, Hx Nose Surgery. Denies: Hx Mastectomy, Hx Open Heart Surgery, Hx Pacemaker - Immunizations Hx Diphtheria, Pertussis, Tetanus Vaccination: Yes Physical Exam - Vital signs Vitals: Temp Pulse Resp BP Pulse Ox 97.9 F 79 14 98/49 L 100 12/18/17 10:49 12/18/17 10:49 12/18/17 10:49 12/18/17 10:49 12/18/17 10:49 Course - Vital Signs Vital signs: Temp Pulse Resp BP Pulse Ox 97.9 F 79 14 98/49 L 100 12/18/17 10:49 12/18/17 10:49 12/18/17 10:49 12/18/17 10:49 12/18/17 10:49
[2017-12-18] MEDS ORDERED: MECLIZINE HCL 25 MG TABLET PO ONE (11:54)
--- NOTE | 2017-12-18 12:14 | ER Document Report ---
ED General - General Chief Complaint: Dizziness Stated Complaint: DIZZINESS Time Seen by Provider: 12/18/17 10:58 Mode of Arrival: Ambulatory TRAVEL OUTSIDE OF THE [place] IN LAST 30 DAYS: No - HPI Notes: Patient is a 77-year-old female with a history of hypertension, hyperlipidemia, diabetes, gastric ulcer, nasopharyngeal cancer (in remission) who presents to the ED complaining of an episode of dizziness this morning. Patient states that she did her normal routine and took all of her medications and was walking in the door when she became dizzy and mild fatigue. She went back inside to lay down when her decided to take her to the hospital. Patient states that she has had symptoms like this previously, October 24. Patient states that she was found to have a urinary infection and was admitted to the hospital for 1 day. Patient states that she is otherwise eating and drinking without having normal bowel movements and urinating. No drug allergies. Denies any headache, fever, head injury, neck pain, changes in vision/speech/mentation/hearing, URI, sore throat, chest pain, palpitations, syncope, cough, shortness of breath, wheeze, dyspnea, abdominal pain, nausea/vomiting/diarrhea, urinary retention, dysuria, hematuria, loss of control of bowel or bladder, numbness/tingling, muscle paralysis/weakness, or rash. - Related Data Allergies/Adverse Reactions: No Known Allergies Allergy (Verified 12/18/17 10:52) Past Medical History - General Information source: Patient - Social History Smoking Status: Former Smoker Chew tobacco use (# tins/day): No Frequency of alcohol use: Occasional Drug Abuse: None Family History: Reviewed & Not Pertinent Patient has suicidal ideation: No Patient has homicidal ideation: No - Past Medical History Cardiac Medical History: Reports: Hx Hypercholesterolemia, Hx Hypertension - MEDICATED Denies: Hx Heart Attack Pulmonary Medical History: Denies: Hx Asthma Neurological Medical History: Denies: Hx Cerebrovascular Accident, Hx Seizures Endocrine Medical History: Reports: Hx Diabetes Mellitus Type 2 Renal/ Medical History: Denies: Hx Peritoneal Dialysis GI Medical History: Denies: Hx Hepatitis, Hx Hiatal Hernia, Hx Ulcer Musculoskeltal Medical History: Reports Hx Arthritis Psychiatric Medical History: Denies: Hx Depression Infectious Medical History: Denies: Hx Hepatitis Past Surgical History: Reports: Hx Hysterectomy, Hx Nose Surgery. Denies: Hx Mastectomy, Hx Open Heart Surgery, Hx Pacemaker - Immunizations Hx Diphtheria, Pertussis, Tetanus Vaccination: Yes Review of Systems - Review of Systems -: Yes All other systems reviewed and negative Physical Exam - Vital signs Vitals: Temp Pulse Resp BP Pulse Ox 97.9 F 79 14 98/49 L 100 12/18/17 10:49 12/18/17 10:49 12/18/17 10:49 12/18/17 10:49 12/18/17 10:49 - Notes Notes: PHYSICAL EXAMINATION: GENERAL: Well-appearing, well-nourished and in no acute distress. A&Ox4. Answers questions appropriately. HEAD: Atraumatic, normocephalic. EYES: Pupils equal round and reactive to light, extraocular movements intact, sclera anicteric, conjunctiva are normal. no nystagmus. ENT: EAC clear b/l. TM's intact b/l without erythema, fluid, or perforation. Nares patent and without discharge. oropharynx clear without exudates. No tonsilar hypertrophy or erythema. Moist mucous membranes. No sinus tenderness. NECK: Normal range of motion, supple without lymphadenopathy. No rigidity. LUNGS: Breath sounds clear to auscultation bilaterally and equal. No wheezes rales or rhonchi. HEART: Regular rate and rhythm without murmurs, rubs, gallops. ABDOMEN: Soft, nontender, nondistended abdomen. No guarding, no rebound. No masses appreciated. Normal bowel sounds present. No CVA tenderness bilaterally. Rectal: brown stool, soft. no melena or hematochezia Musculoskeletal: Ext b/l: FROM to passive/active. Strength 5+/5. No deficits noted. Extremities: No cyanosis, clubbing, or edema b/l. Peripheral pulses 2+. Capillary refill less than 2 seconds. NEUROLOGICAL: NIH 0. GCS 15. Cranial nerves grossly intact. Normal speech, normal gait. Normal sensory, motor exams. Reflexes 2+ b/l. JACKELYN's negative. Pronator drift negative. PSYCH: Normal mood, normal affect. SKIN: Warm, Dry, normal turgor, no rashes or lesions noted. Course - Re-evaluation Re-evalutation: 12/18/17 16:06 Patient is an afebrile, well-hydrated, 77 presents to the ED with guaiac positive stool and dizziness/fatigue (since resolved). Vitals are acceptable. PE is otherwise unremarkable. Patient is currently asymptomatic. She has not had any acute bleeding and does not have any abdominal pain. Her abdomen is soft and nontender. Patient was noted to have a nonbleeding ulcer noted on endoscopy 1 month ago with her yarn packer, Dr. Sparks. Her CBC shows anemia at 8.7 when she is at 12.1 a month and a half ago. CMP, cardiac enzyme/ ekg, and urinalysis were otherwise unremarkable. Guaiac was positive. Patient was ambulated and is able to do so without any recurrence of the dizziness or fatigue. Patient states that she is feeling much better and would like to go home. I did review with Dr. thomas who is in agreement that if patient is doing better that we can treat as an outpatient with iron/vit c. I did call and talk with Dr. Sparks who is in agreement with outpatient for presumptive slow bleed and they are to call his office first thing thursday. She will be scheduled for an outpatient endoscopy at that time. No other labs or imaging warranted at this time based on H&P. Patient is tolerating p.o. without difficulties. Low suspicion for any ACS, sepsis, meningitis, severe dehydration, respiratory compromise, acute abdomen, or other systemic emergent condition at this time. Patient is aware that condition can change from initial presentation and she needs to monitor symptoms closely and seek medical attention with any acute changes. I will send her home with a prescription for iron. Conservative measures otherwise for symptoms. Recheck with your PCM in 3 -5 days as well. GI consult as reviewed. Return to the ED with any worsening/ concerning symptoms otherwise as reviewed discharge. Patient is in agreement. - Vital Signs Vital signs: Temp Pulse Resp BP Pulse Ox 97.9 F 78 19 105/63 100 12/18/17 10:49 12/18/17 13:40 12/18/17 13:38 12/18/17 13:40 12/18/17 13:38 - Laboratory Result Diagrams: 12/18/17 13:10 12/18/17 13:10 Laboratory results interpreted by me: 12/18/17 12/18/17 12/18/17 13:10 13:10 14:30 RBC 3.00 L Hgb 8.7 L Hct 25.9 L RDW 17.0 H Lymphocytes % 8.8 L Absolute Lymphocytes 0.4 L Chloride 109 H Carbon Dioxide 18 L BUN 26 H Est GFR (Non-Af Amer) 53 L Glucose 112 H Ur Leukocyte Esterase TRACE H Discharge - Discharge Clinical Impression: Anemia Qualifiers: Anemia type: unspecified type Qualified Code(s): D64.9 - Anemia, unspecified GI bleed Qualifiers: GI bleed type/associated pathology: unspecified gastrointestinal hemorrhage type Qualified Code(s): K92.2 - Gastrointestinal hemorrhage, unspecified Condition: Stable Disposition: HOME, SELF-CARE Additional Instructions: Maintain adequate fluid and food intake Take meds as directed--take colace to help bowels when taking the iron healthy diet tylenol if needed Monitor for any worsening symptoms Make sure you are staying hydrated enough to urinate and have normal BM's Recheck with your PCM in 3-[address] Sparks's office first thing Thursday to schedule an appointment (they are closed Thursday) Return to the ED with any worsening symptoms and/or development of fever, headache, chest pain, palpitations, syncope, shortness of breath, trouble breathing, abdominal pain, n/v/d, blood in stool/urine, weakness, or other worsening symptoms that are concerning to you. Prescriptions: Docusate Sodium [Colace 100 mg Capsule] 100 mg PO DAILY #15 capsule Ferrous Sulfate 325 mg PO DAILY #15 tablet Referrals: CRISTOFER DÍAZ MD [ACTIVE STAFF] - Follow up as needed KULDIP SPARKS MD [ACTIVE STAFF] - 12/22/17
--- NOTE | 2017-12-18 13:10 | EKG REPORT ---
SEVERITY:- BORDERLINE ECG - SINUS RHYTHM BORDERLINE T ABNORMALITIES, DIFFUSE LEADS : Confirmed by: Gus Carpenter MD 18-Dec-2017 13:09:55
[2017-12-18 13:26] LABS: ABSOLUTE EOSINOPHILS # (AUTO) 0.1 10^3/uL (0.0-0.6); ABSOLUTE LYMPHOCYTES (AUTO) 0.4 10^3/uL (0.5-4.7); ABSOLUTE MONOCYTES (AUTO) 0.6 10^3/uL (0.1-1.4); ABSOLUTE NEUT (AUTO) 3.7 10^3/uL (1.7-8.2); BASOPHILS % (AUTO) 0.6 % (0-2); EOSINOPHILS % (AUTO) 1.3 % (0-6); HEMATOCRIT 25.9 % (36.0-47.0); HEMOGLOBIN 8.7 g/dL (12.0-15.5); LYMPHOCYTES % (AUTO) 8.8 % (13-45); MEAN CORPUSCULAR HEMOGLOBIN 28.9 pg (27.0-33.4); MEAN CORPUSCULAR HGB CONC 33.5 g/dL (32.0-36.0); MEAN CORPUSCULAR VOLUME 86 fl (80-97); MONOCYTES % (AUTO) 12.7 % (3-13); PLATELET COUNT 371 10^3/uL (150-450); SEGMENTED NEUTROPHILS % (AUTO) 76.6 % (42-78); TOTAL CELLS COUNTED % (AUTO) 100 %; WHITE BLOOD COUNT 4.8 10^3/uL (4.0-10.5)
[2017-12-18 13:43] LABS: ALANINE AMINOTRANSFERASE 15 U/L (9-52); ALBUMIN 3.7 g/dL (3.5-5.0); ALKALINE PHOSPHATASE 110 U/L (38-126); ANION GAP 14 (5-19); ASPARTATE AMINO TRANSFERASE 16 U/L (14-36); BLOOD UREA NITROGEN 26 mg/dL (7-20); CALCIUM 9.4 mg/dL (8.4-10.2); CARBON DIOXIDE 18 mmol/L (22-30); CHLORIDE 109 mmol/L (98-107); CREATINE KINASE 77 U/L (30-135); GLUCOSE 112 mg/dL (75-110); POTASSIUM 4.5 mmol/L (3.6-5.0); SODIUM 141.3 mmol/L (137-145); TOTAL PROTEIN 6.4 g/dL (6.3-8.2)
[2017-12-18 13:51] LABS: BILIRUBIN,TOTAL 0.2 mg/dL (0.2-1.3)
[2017-12-18 13:55] LABS: BILIRUBIN,DIRECT 0.2 mg/dL (0.0-0.4); CREATINE KINASE MB 1.26 ng/mL (<4.55)
[2017-12-18 13:56] LABS: TROPONIN I < 0.012 ng/mL
[2017-12-18] MEDS ORDERED: FERROUS SULFATE 325 MG TABLET PO ONE (14:04)
[2017-12-18] MEDS ORDERED: DOCUSATE SODIUM 100 MG CAPSULE PO ONE (14:05)
[2017-12-18 15:18] LABS: APPEARANCE,URINE CLEAR; BILIRUBIN,URINE NEGATIVE (NEGATIVE); COLOR,URINE YELLOW; GLUCOSE, URINE NEGATIVE (NEGATIVE); KETONES,URINE NEGATIVE (NEGATIVE); LEUKOCYTE ESTERASE,URINE TRACE (NEGATIVE); NITRITE,URINE NEGATIVE (NEGATIVE); PROTEIN,URINE NEGATIVE (NEGATIVE); URINE SPECIFIC GRAVITY 1.009; UROBILINOGEN,URINE NEGATIVE mg/dL (<2.0)
[2017-12-18 15:49] LABS: PROTHROMBIN TIME 13.7 SEC (11.4-15.4)
[2017-12-18 15:52] LABS: PARTIAL THROMBOPLASTIN TIME 35.4 SEC (23.5-35.8)
[2017-12-18 17:52] VITALS: BP 125/71
== END 2017-12-18 17:25 | disposition home or self-care (01) ==
LOC: ER 10:43
DX: D64.9 Anemia, unspecified (principal); K92.2 Gastrointestinal hemorrhage, unspecified; R42 Dizziness and giddiness; I10 Essential (primary) hypertension; R53.83 Other fatigue; E11.9 Type 2 diabetes mellitus without complications; Z90.710 Acquired absence of both cervix and uterus; Z87.891 Personal history of nicotine dependence
CPT/HCPCS: 93005; 99284; 96360; 36415; 82553; 82550; 85025; 85610; 85730; 82272; 80053; 81001; 84484; 93010; A9270 ×2; J7030

== ENCOUNTER → 2018-04-26 | Outpatient (CLI) | payer MEDICARE ==
--- NOTE | 2018-04-27 13:40 | WOMENS IMAGING REPORT ---
EXAM DESCRIPTION: 3D SCREENING MAMMO BILAT COMPLETED DATE/TIME: 04/26/2018 7:52 am REASON FOR STUDY: SCREENING MAMMO Z12.31 ENCNTR SCREEN MAMMOGRAM FOR MALIGNANT NEOPLASM OF MELISSA COMPARISON: 2013 to 2016 TECHNIQUE: Standard craniocaudal and mediolateral oblique views of each breast recorded using digita l acquisition and breast tomosynthesis. LIMITATIONS: None. FINDINGS: No masses, calcifications or architectural distortion. No areas of suspicion. Read with the assistance of CAD. [facility] - R2 Cenova Version 1.3 .[facility] - R2 Cenova Version 1.3 .[facility] - R2 Cenova Version 2.4 .[facility] - R2 Cenova Version 2.4 .[facility] - R2 Info Analyst Version 9.2 IMPRESSION: NORMAL MAMMOGRAM. BIRADS 1. BREAST DENSITY: b. There are scattered areas of fibroglandular density. BIRAD: 1 NEGATIVE RECOMMENDATION: ROUTINE SCREENING COMMENT: The patient has been notified of the results by letter per SA requirements. Additional no tification policies are in place for contacting patient with suspicious or incomplete findings. Quality ID #[id number]: The [employer] [employer] recommends an annual screening mammogram for women aged 40 years or over. This facility utilizes a reminder system to ensure that all patients receive reminder letters, and/or direct phone calls for appointments. This includes reminders for routine scr eening mammograms, diagnostic mammograms, or other Breast Imaging Interventions when appropriate. Th is patient will be placed in the appropriate reminder system. The [place] [employer] (ACR) has developed recommendations for screening MRI of the breast s in certain patient populations, to be used in conjunction with mammography. Breast MRI surveillanc e may be appropriate for women with more than 20% lifetime risk of developing breast cancer as deter mined by genetic testing, significant family history of the disease, or history of mantle radiation f or Hodgkins Disease. ACR Practice Guidelines 2008. DBT Technology DBT is a type of tomographic mammography. With conventional mammography, overlapping breast tissue ma y make lesions difficult to detect, even with good compression. DBT uses an x-ray tube that rotates a round the breast, taking images at different angles. These images are then combined to create thin sl ices of the breast that the radiologist can view as a 3D reconstruction. The Mobile System 7 unit can perform full-field digital mammograms (2D imaging); or DBT (3D imaging); or both, in a combination mode that quickly performs both the mammogram and the tomosynthesis scan while the breast is still compressed. PQRS 6045F: Fluoroscopic imaging is not utilized for breast tomosynthesis. TECHNICAL DOCUMENTATION: FINDING NUMBER: (1) ASSESSMENT: (1) JOB ID: [id number] [employer]- All Rights Reserved Reading location - IP/workstation name: [email or web address] [id number]
== END ==
LOC: WI 06:53
PROVIDERS: ATTEND Family Medicine
DX: Z12.31 Encounter for screening mammogram for malignant neoplasm of breast (principal)
CPT/HCPCS: 77063; 77067

== ENCOUNTER 2018-05-30 09:14 | Emergency (ER) | payer MEDICARE ==
--- NOTE | 2018-05-30 10:10 | ER Document Report ---
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 Patient does have a history of anemia requiring iron transfusions (followed by oncologist Dr. Gardiner). She also reports increasing weakness over the last several days. Patient was last seen by her ENT doctor May 26 : her next appointment was for June 30. Patient is on baby aspirin daily. Her other medical problems include diabetes, hypertension, GERD. Her primary care doctor is Dr. Shyam Jackson TRAVEL OUTSIDE OF THE [place] IN LAST 30 DAYS: No - Related Data Allergies/Adverse Reactions: No Known Allergies Allergy (Verified 12/18/17 10:52) Past Medical History - Social History Frequency of alcohol use: Occasional - Past Medical History Cardiac Medical History: Reports: Hx Hypercholesterolemia, Hx Hypertension - MEDICATED Denies: Hx Heart Attack Pulmonary Medical History: Denies: Hx Asthma Neurological Medical History: Denies: Hx Cerebrovascular Accident, Hx Seizures Endocrine Medical History: Reports: Hx Diabetes Mellitus Type 2 Renal/ Medical History: Denies: Hx Peritoneal Dialysis GI Medical History: Denies: Hx Hepatitis, Hx Hiatal Hernia, Hx Ulcer Musculoskeltal Medical History: Reports Hx Arthritis Psychiatric Medical History: Denies: Hx Depression Infectious Medical History: Denies: Hx Hepatitis Past Surgical History: Reports: Hx Hysterectomy, Hx Nose Surgery - Cancer removal. Denies: Hx Mastectomy, Hx Open Heart Surgery, Hx Pacemaker - Immunizations Hx Diphtheria, Pertussis, Tetanus Vaccination: Yes Physical Exam - Vital signs Vitals: Temp Pulse Resp BP Pulse Ox 98.5 F 75 16 137/73 H 100 05/30/18 09:27 05/30/18 09:27 05/30/18 09:27 05/30/18 09:27 05/30/18 09:27 Course - Vital Signs Vital signs: Temp Pulse Resp BP Pulse Ox 98.5 F 75 16 137/73 H 100 05/30/18 09:27 05/30/18 09:27 05/30/18 09:27 05/30/18 09:27 05/30/18 09:27 Doctor's Discharge - Discharge Referrals: CRISTOFER JACKSON MD [Primary Care Provider] - Follow up as needed
[2018-05-30 10:46] LABS: ABSOLUTE EOSINOPHILS # (AUTO) 0.2 10^3/uL (0.0-0.6); ABSOLUTE LYMPHOCYTES (AUTO) 0.6 10^3/uL (0.5-4.7); ABSOLUTE MONOCYTES (AUTO) 0.5 10^3/uL (0.1-1.4); ABSOLUTE NEUT (AUTO) 3.1 10^3/uL (1.7-8.2); BASOPHILS % (AUTO) 0.9 % (0-2); EOSINOPHILS % (AUTO) 4.2 % (0-6); HEMATOCRIT 32.3 % (36.0-47.0); HEMOGLOBIN 10.5 g/dL (12.0-15.5); LYMPHOCYTES % (AUTO) 12.8 % (13-45); MEAN CORPUSCULAR HGB CONC 32.6 g/dL (32.0-36.0); MEAN CORPUSCULAR VOLUME 92 fl (80-97); MONOCYTES % (AUTO) 12.3 % (3-13); PLATELET COUNT 383 10^3/uL (150-450); SEGMENTED NEUTROPHILS % (AUTO) 69.8 % (42-78); TOTAL CELLS COUNTED % (AUTO) 100 %; WHITE BLOOD COUNT 4.5 10^3/uL (4.0-10.5)
[2018-05-30 10:51] LABS: INTERNATIONAL RATION (INR) 0.97; PROTHROMBIN TIME 13.4 SEC (11.4-15.4)
[2018-05-30 11:07] LABS: ALANINE AMINOTRANSFERASE 13 U/L (9-52); ALBUMIN 4.1 g/dL (3.5-5.0); ALKALINE PHOSPHATASE 121 U/L (38-126); ANION GAP 12 (5-19); ASPARTATE AMINO TRANSFERASE 20 U/L (14-36); BILIRUBIN,DIRECT 0.2 mg/dL (0.0-0.4); BILIRUBIN,TOTAL 0.3 mg/dL (0.2-1.3); BLOOD UREA NITROGEN 11 mg/dL (7-20); CALCIUM 9.9 mg/dL (8.4-10.2); CARBON DIOXIDE 25 mmol/L (22-30); CHLORIDE 107 mmol/L (98-107); GLUCOSE 83 mg/dL (75-110); POTASSIUM 4.6 mmol/L (3.6-5.0); TOTAL PROTEIN 7.4 g/dL (6.3-8.2)
--- NOTE | 2018-05-30 12:18 | ER Document Report ---
ED ENT - General Chief Complaint: Nose Bleed Stated Complaint: NOSE BLEED Time Seen by Provider: 05/30/18 10:05 Mode of Arrival: Wheelchair TRAVEL OUTSIDE OF THE [place] 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 Not on any blood thinners has not taken her blood pressure medication today but is otherwise okay. Denies any difficulty breathing , shortness of breath chest pain or otherwise. - Related Data Allergies/Adverse Reactions: No Known Allergies Allergy (Verified 12/18/17 10:52) Past Medical History - General Information source: Patient - Social History Smoking Status: Former Smoker Frequency of alcohol use: Occasional Family History: Reviewed & Not Pertinent Patient has suicidal ideation: No Patient has homicidal ideation: No - Past Medical History Cardiac Medical History: Reports: Hx Hypercholesterolemia, Hx Hypertension - MEDICATED Denies: Hx Heart Attack Pulmonary Medical History: Denies: Hx Asthma Neurological Medical History: Denies: Hx Cerebrovascular Accident, Hx Seizures Endocrine Medical History: Reports: Hx Diabetes Mellitus Type 2 Renal/ Medical History: Denies: Hx Peritoneal Dialysis GI Medical History: Denies: Hx Hepatitis, Hx Hiatal Hernia, Hx Ulcer Musculoskeletal Medical History: Reports Hx Arthritis Psychiatric Medical History: Denies: Hx Depression Infectious Medical History: Denies: Hx Hepatitis Past Surgical History: Reports: Hx Hysterectomy, Hx Nose Surgery - Cancer removal. Denies: Hx Mastectomy, Hx Open Heart Surgery, Hx Pacemaker - Immunizations Hx Diphtheria, Pertussis, Tetanus Vaccination: Yes Review of Systems - Review of Systems -: Yes All other systems reviewed and negative Physical Exam - Vital signs Vitals: Temp Pulse Resp BP Pulse Ox 98.5 F 75 16 137/73 H 100 05/30/18 09:27 05/30/18 09:27 05/30/18 09:27 05/30/18 09:27 05/30/18 09:27 - General General appearance: Appears well In distress: None - HEENT Head: Other - Large depression in the right aspect of the face Eyes: Normal Conjunctiva: Normal Cornea: Normal Mouth/Lips: Other - The roof of the mouth is entirely absent replaced with a partial, upon removal it is appreciable that you are able to see patient's entire nasal sinus, Mucous membranes: Moist Pharynx: Other - Absent - Respiratory Respiratory status: No respiratory distress Chest status: Nontender Breath sounds: Normal Chest palpation: Normal - Cardiovascular Rhythm: Regular Heart sounds: Normal auscultation Murmur: No - Abdominal Inspection: Normal - Back Back: Normal - Extremities General upper extremity: Normal inspection, Nontender, Normal strength, Normal temperature General lower extremity: Normal inspection, Nontender, Normal strength, Normal temperature - Neurological Neuro grossly intact: Yes Cognition: Normal Orientation: AAOx4 [place] Coma Scale Eye Opening: Spontaneous [place] Coma Scale Verbal: Oriented [place] Coma Scale Motor: Obeys Commands [place] Coma Scale Total: 15 - Psychological Associated symptoms: Normal affect Course - Re-evaluation Re-evalutation: 05/30/18 18:21 6-year-old female presents with a nosebleed out of the left naris. She has a large portion of her face missing replaced by a maxillary partial. Removal of the partial does demonstrate some bleeding in the superior aspect of the left naris. There is some dried blood there but no active oozing or bleeding. The patient is able to breathe spontaneously well-appearing and not obstructing her airway. She is on any blood thinners at this time and is hemostatic. Because she is otherwise well-appearing she does have this known oozing sinus will give symptomatic care including oxymetazoline as well as instructions on utilizing humidified air. They will follow-up with their facial surgeon. We will plan for discharge with return precautions. - Vital Signs Vital signs: Temp Pulse Resp BP Pulse Ox 99.0 F 83 15 130/96 H 100 05/30/18 12:47 05/30/18 12:47 05/30/18 12:47 05/30/18 12:47 05/30/18 09:27 - Laboratory Result Diagrams: 05/30/18 10:28 05/30/18 10:28 Laboratory results interpreted by me: 05/30/18 05/30/18 10:28 10:28 RBC 3.50 L Hgb 10.5 L Hct 32.3 L RDW 18.0 H Lymphocytes % 12.8 L Creatinine 0.51 L Discharge - Discharge Clinical Impression: Bleeding nose Condition: Good Disposition: HOME, SELF-CARE Additional Instructions: Your seen today in the emergency department for your nosebleed. It looks like the nose bleeding that you have is related to your sinuses on the left side of your face. Because of the large space in the roof of your mouth which is missing this area is drying out and likely contributing to the bleeding you are having. You should make sure you are using a humidifier. Use the nasal spray provided to you if you begin to have bleeding which will not slow down, take 1 large breath and clean out your nose and back of the throat of blood, afterwards take a large breath in of the nasal spray coating the nose and trying to stop the bleeding. 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 Return if the bleeding will not stop, worsens or changes. Prescriptions: Oxymetazoline HCl [Afrin 0.05% Nasal [place] 15 ml Bottle] 30 spray NAREB TID PRN #1 bottle PRN Reason: See Label Comments Forms: Return to Work Referrals: CRISTOFER DÍAZ MD [Primary Care Provider] - Follow up as needed
[2018-05-30 12:48] VITALS: BP 130/96
[2018-05-30] MEDS ORDERED: OXYMETAZOLINE HCL 0.05% NASAL SPRAY 15 ML BOTTLE NASL ONE (12:51)
== END 2018-05-30 13:07 | disposition home or self-care (01) ==
LOC: ER 09:14
DX: R04.0 Epistaxis (principal); E11.9 Type 2 diabetes mellitus without complications; E78.00 Pure hypercholesterolemia, unspecified; I10 Essential (primary) hypertension; Z85.89 Personal history of malignant neoplasm of other organs and systems
CPT/HCPCS: 99283; 36415; 85025; 85610; 80053; J3490

== ENCOUNTER 2018-05-30 22:56 | Emergency (ER) | payer MEDICARE ==
--- NOTE | 2018-05-31 00:54 | ER Document Report ---
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 Pt has had a partial bridge in place of her previously removed maxillary bone, she presented this morning with some nose bleeding out of her left nostril which she has had chronically and her ENT surgeon, Dr. Mckeon and believes that this is related to a sinus infection. Pt. had been on ABX previously, but has finished them. Pt is not on any blood thinners nor does she have HTN. Denies any difficulty breathing, shortness of breath, chest pain. Pt. Stated the bleeding had stopped when she was in the ED this morning but stated the bleeding started again this evening which is why she re-presents to the ED. Bleeding has since stopped upon arrival to ED this evening. Pt. stated she feels as though there is a blood clot in her sinus' that she can not get out. Pt stated she has an apt with Dr. Mckeon in June. Pt. stated since leaving the ED she has not used any of the Afrin nose spray and has also not put her bridge back in. Pt. continues to deny CP, SOB, dizziness, nausea, vomiting, or difficulty breathing. TRAVEL OUTSIDE OF THE [place] IN LAST 30 DAYS: No - Related Data Allergies/Adverse Reactions: No Known Allergies Allergy (Verified 12/18/17 10:52) Past Medical History - General Information source: Patient - Social History Smoking Status: Never Smoker Lives with: Family Family History: Reviewed & Not Pertinent Patient has suicidal ideation: No Patient has homicidal ideation: No - Past Medical History Cardiac Medical History: Reports: Hx Hypercholesterolemia, Hx Hypertension - MEDICATED Denies: Hx Heart Attack Pulmonary Medical History: Denies: Hx Asthma Neurological Medical History: Denies: Hx Cerebrovascular Accident, Hx Seizures Endocrine Medical History: Reports: Hx Diabetes Mellitus Type 2 Renal/ Medical History: Denies: Hx Peritoneal Dialysis GI Medical History: Denies: Hx Hepatitis, Hx Hiatal Hernia, Hx Ulcer Musculoskeletal Medical History: Reports Hx Arthritis Psychiatric Medical History: Denies: Hx Depression Infectious Medical History: Denies: Hx Hepatitis Past Surgical History: Reports: Hx Hysterectomy, Hx Nose Surgery - Cancer removal. Denies: Hx Mastectomy, Hx Open Heart Surgery, Hx Pacemaker - Immunizations Hx Diphtheria, Pertussis, Tetanus Vaccination: Yes Review of Systems - Review of Systems Constitutional: See HPI EENT: See HPI Cardiovascular: See HPI Respiratory: See HPI Gastrointestinal: No symptoms reported Genitourinary: No symptoms reported Female Genitourinary: See HPI Musculoskeletal: No symptoms reported Skin: See HPI Hematologic/Lymphatic: See HPI Neurological/Psychological: No symptoms reported Physical Exam - Vital signs Vitals: Temp Pulse Resp BP Pulse Ox 98.1 F 89 18 127/70 H 100 05/30/18 23:22 05/30/18 23:22 05/30/18 23:22 05/30/18 23:22 05/30/18 23:22 - Notes Notes: GENERAL: Alert, interacts well. No acute distress. HEAD: Normocephalic, atraumatic. depression noted right maxillary region, noted from surgery, removal of bone. EYES: Pupils equal, round, and reactive to light. Extraocular movements intact. ENT: Oral mucosa moist, tongue midline. looking into Pts mouth you can see directly up into her nasal sinus' there is no maxillary bone. There is no active bleeding from sinus', but there does appear to be a clot in place. pt. stated she tried to blow her nose but can not remove it. NECK: Full range of motion. Supple. Trachea midline. LUNGS: Clear to auscultation bilaterally, no wheezes, rales, or rhonchi. No respiratory distress. HEART: Regular rate and rhythm. No murmur ABDOMEN: Soft, non-tender. Non-distended. Bowel sounds present in all 4 quadrants. EXTREMITIES: Moves all 4 extremities spontaneously. No edema, normal radial and dorsalis pedis pulses bilaterally. No cyanosis. BACK: no cervical, thoracic, lumbar midline tenderness. No saddle anesthesia, normal distal neurovascular exam. NEUROLOGICAL: Alert and oriented x3. Normal speech. cranial nerves II through XII grossly intact. PSYCH: Normal affect, normal mood. SKIN: Warm, dry, normal turgor. No rashes or lesions noted. Course - Re-evaluation Re-evalutation: There did appear to be a clot in the sinuses. Clot was removed with Q-tips and gauze and patient was observed for an hour. No further bleeding at this time. Patient was able to do Afrin in each nostril. Continues without bleeding. Reviewed labs which were drawn at this mornings visit, no signs of severe blood loss HgB has increased since last visit and Coags WNL. Discussed need for follow -up with ENT tomorrow morning. Return precautions discussed - Vital Signs Vital signs: Temp Pulse Resp BP Pulse Ox 98.1 F 89 18 127/70 H 100 05/30/18 23:22 05/30/18 23:22 05/30/18 23:22 05/30/18 23:22 05/30/18 23:22 Discharge - Discharge Clinical Impression: Epistaxis Condition: Stable Disposition: HOME, SELF-CARE Instructions: Nosebleed Instructions ([facility]) Additional Instructions: As we discussed you should try for a soft food diet for the next 24 hours. You should also try not putting in your bridge until follow-up with your ENT surgeon. Please call your ENT surgeon in the morning to make an appointment. Please remember to tell them you are in the emergency room twice for the same issue. Please return to the emergency room for any other worsening symptoms or bleeding. Forms: Return to Work Referrals: CRISTOFER DÍAZ MD [Primary Care Provider] - Follow up as needed
[2018-05-31 02:38] VITALS: BP 140/89
== END 2018-05-31 02:37 | disposition home or self-care (01) ==
LOC: ER 22:56
DX: R04.0 Epistaxis (principal); E78.00 Pure hypercholesterolemia, unspecified; I10 Essential (primary) hypertension; E11.9 Type 2 diabetes mellitus without complications; Z90.710 Acquired absence of both cervix and uterus
CPT/HCPCS: 99283

== ENCOUNTER → 2018-10-15 | Outpatient (CLI) | payer MEDICARE, OTHER ==
--- NOTE | 2018-10-15 12:54 | RADIOLOGY REPORT (SQ) ---
EXAM DESCRIPTION: BARIUM ENEMA W/AIR COMPLETED DATE/TIME: 10/15/2018 10:54 am REASON FOR STUDY: PERSONAL HISTORY OF COLONIC POLYPS Z86.010 PERSONAL HISTORY OF COLONIC POLYPS in complete colonoscopy COMPARISON: None. FLUOROSCOPY TIME: 2.9 minutes of fluoroscopy was used. 21 images saved to PACS. TECHNIQUE: Following retrograde filling of the colon with barium and air, fluoroscopic spot and over head imaging of the colon was obtained and saved to PACS. LIMITATIONS: Retained stool in the cecum and ascending colon. FINDINGS: RN SPINE KUB: Normal abdominal film with apparent adequate bowel prep. CECUM: Retained fecal material in the colon and ascending colon limits visualization of small mucosal lesions. No gross abnormalities are identified. ASCENDING COLON: Retained fecal material which limits sensitivity food mucosal lesions. No gross abn ormalities are identified. TRANSVERSE COLON: Scattered diverticular identified. Small amount of fecal material seen in the harrell sverse colon. No gross abnormalities are identified. DESCENDING COLON: Diverticulosis without evidence diverticulitis. Scattered fecal material is identi fied. No strictures or mass lesions are identified. SIGMOID COLON: Significant diverticulosis without evidence of diverticulitis. No strictures identifi ed. RECTUM: Normal mucosa without intraluminal filling defects, intrinsic or extrinsic masses, or lesions . POST EVAC: Moderate amount of retained barium throughout the colon. No additional findings. OTHER: No other significant finding. IMPRESSION: LIMITED AIR CONTRAST BARIUM ENEMA DUE TO RETAINED FECAL MATERIAL IN THE CECUM AND ASCEND ING COLON WHICH LIMITS SENSITIVITY FOR SMALL MUCOSAL LESIONS. SCATTERED COLONIC DIVERTICULUM ARE FAIZAN NTIFIED, MORE SO IN THE SIGMOID COLON WITHOUT EVIDENCE OF STRICTURE. RECOMMEND REPEAT AIR CONTRAST B ARIUM ENEMA AFTER THOROUGH BOWEL CLEANSING FOR REPEAT OF COLONOSCOPY. COMMENT: Quality ID 145: Final reports for procedures using fluoroscopy that document radiation exp osure indices, or exposure time and number of fluorographic images (if radiation exposure indices are not available) TECHNICAL DOCUMENTATION: JOB ID: [id number] [employer]- All Rights Reserved Reading location - IP/workstation name: [email or web address]
== END ==
LOC: RAD 09:12
PROVIDERS: ATTEND Internal Medicine Gastroenterology
DX: Z09 Encounter for follow-up examination after completed treatment for conditions other than malignant neoplasm (principal); Z86.010 Personal history of colon polyps
CPT/HCPCS: 74280

== ENCOUNTER 2018-10-30 01:31 | Emergency (ER) | payer MEDICARE ==
--- NOTE | 2018-10-30 02:39 | ER Document Report ---
ED General - General Chief Complaint: Post Surgical Bleeding Stated Complaint: NOSE BLEEDING Time Seen by Provider: 10/30/18 02:28 Primary Care Provider: KULDIP GARCIA MD [ACTIVE STAFF] - Follow up as needed TRAVEL OUTSIDE OF THE [place] IN LAST 30 DAYS: No - HPI Notes: Patient is a 78-year-old female that presents to the emergency department for chief complaint of nosebleed. 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 She states since the surgery 2 years ago she has had intermittent nosebleeds. Tonight she was using her toothbrush and accidentally scrubbed the nasal area through the roof of her mouth. She states she had bleeding for about 15 minutes at 10 PM which resolved on its own. Patient got up to use the restr oom at 1 and had recurrence of her bleeding for about 30 minutes. She has had multiple episodes of bleeding which usually resolve on their own. She denies being on blood thinning medicines. She denies any recent injury. She denies feeling lightheaded or nauseated. Currently she states it feels like the bleeding has stopped. Past Medical History: Squamous cell carcinoma Past Surgical History: Hard and soft palate resection Social History: Reviewed in chart Family History: Reviewed and noncontributory for presenting illness Allergies: Reviewed, see documented allergy list. REVIEW OF SYSTEMS: CONSTITUTIONAL : No fever No chills No diaphoresis No recent illness EENT: Nosebleed No vision changes No congestion No sore throat CARDIOVASCULAR: No chest pain No palpitations RESPIRATORY: No shortness of breath No cough No difficulty breathing GASTROINTESTINAL: No abdominal pain No nausea No vomiting No diarrhea GENITOURINARY: No dysuria No hematuria No difficulty urinating MUSCULOSKELETAL: No back pain No leg pain No arm pain SKIN: No rashes No lesions LYMPHATIC: No swollen, enlarged glands. NEUROLOGICAL: No lightheadedness No headache No weakness No paresthesias PSYCHIATRIC: No anxiety No depression PHYSICAL EXAMINATION: Vital signs reviewed, nursing noted reviewed. GENERAL: Well-appearing, well-nourished and in no acute distress. HEAD: Atraumatic, normocephalic. EYES: Eyes appear normal, extraocular movements intact, sclera anicteric, conjunctiva are normal. ENT: nares patent, oropharynx clear without exudates. Moist mucous membranes. Surgical resection of soft palate allows direct visualization of nasal turbinates with small area of clotted blood on the left posterior nasopharynx. No active bleeding. NECK: Normal range of motion, supple without lymphadenopathy LUNGS: Breath sounds clear to auscultation bilaterally and equal. No wheezes rales or rhonchi. HEART: Regular rate and rhythm without murmurs ABDOMEN: Soft, nontender, normoactive bowel sounds. No rebound, guarding, or rigidity. No masses appreciated. EXTREMITIES: Nontender, good range of motion, no pitting or edema. NEUROLOGICAL: No focal neurological deficits. Moves all extremities spontaneously Motor and sensory grossly intact on exam. PSYCH: Normal mood, normal affect. SKIN: Warm, Dry, normal turgor, no rashes or lesions noted on exposed skin - Related Data Allergies/Adverse Reactions: No Known Allergies Allergy (Verified 12/18/17 10:52) Past Medical History - Social History Smoking Status: Unknown if Ever Smoked Family History: Reviewed & Not Pertinent - Past Medical History Cardiac Medical History: Reports: Hx Hypercholesterolemia, Hx Hypertension - MEDICATED Denies: Hx Heart Attack Pulmonary Medical History: Denies: Hx Asthma Neurological Medical History: Denies: Hx Cerebrovascular Accident, Hx Seizures Endocrine Medical History: Reports: Hx Diabetes Mellitus Type 2 Renal/ Medical History: Denies: Hx Peritoneal Dialysis GI Medical History: Denies: Hx Hepatitis, Hx Hiatal Hernia, Hx Ulcer Musculoskeletal Medical History: Reports Hx Arthritis Psychiatric Medical History: Denies: Hx Depression Infectious Medical History: Denies: Hx Hepatitis Past Surgical History: Reports: Hx Hysterectomy, Hx Nose Surgery - Cancer removal. Denies: Hx Mastectomy, Hx Open Heart Surgery, Hx Pacemaker - Immunizations Hx Diphtheria, Pertussis, Tetanus Vaccination: Yes Physical Exam - Vital signs Vitals: Temp Pulse Resp BP Pulse Ox 98.2 F 98 20 115/69 100 10/30/18 01:35 10/30/18 01:35 10/30/18 01:35 10/30/18 01:35 10/30/18 01:35 Course - Re-evaluation Re-evalutation: 10/30/18 02:37 Vitals reviewed. Nursing notes reviewed. Patient has no active bleeding currently. She will be monitored in the emergency room for recurrence. If bleeding remains stopped she will be discharged home and encouraged to follow closely with ENT. 10/30/18 03:05 Patient reevaluated and has not had any more bleeding. She is requesting to go home. She will follow with her ENT. - Vital Signs Vital signs: Temp Pulse Resp BP Pulse Ox 98.2 F 98 20 115/69 100 10/30/18 01:35 10/30/18 01:35 10/30/18 01:35 10/30/18 01:35 10/30/18 01:35 Discharge - Discharge Clinical Impression: Epistaxis Condition: Stable Disposition: HOME, SELF-CARE Instructions: Nosebleed Instructions ([facility]) Additional Instructions: Please return to the emergency department if you have any worsening, or concern of your symptoms. Please return to the emergency department if you develop chest pain, difficulty breathing, severe abdominal pain, or ongoing vomiting. Please follow-up with your primary care physician in 2-3 days and any other recommended physicians. If prescribed, take all medications as directed. If you have any questions or concerns do not hesitate to return the emergency department for evaluation. Follow-up with your ENT physician in the next 1-2 days for close reevaluation. Return to the emergency room if you are unable to get the bleeding to stop at home on your own. Referrals: KULDIP GARCIA MD [ACTIVE STAFF] - Follow up as needed
[2018-10-30 03:17] VITALS: BP 111/90
== END 2018-10-30 03:17 | disposition home or self-care (01) ==
LOC: ER 01:31
DX: R04.0 Epistaxis (principal); E78.00 Pure hypercholesterolemia, unspecified; I10 Essential (primary) hypertension; E11.9 Type 2 diabetes mellitus without complications; Z90.710 Acquired absence of both cervix and uterus
CPT/HCPCS: 99283

== ENCOUNTER → 2019-04-27 | Outpatient (CLI) | payer MEDICARE ==
--- NOTE | 2019-04-27 11:31 | WOMENS IMAGING REPORT ---
EXAM DESCRIPTION: 3D SCREENING MAMMO BILAT COMPLETED DATE/TIME: 04/27/2019 9:02 am REASON FOR STUDY: Z12.31 SCREENING MAMMO Z12.31 ENCNTR SCREEN MAMMOGRAM FOR MALIGNANT NEOPLASM OF B RE COMPARISON: Priors going back to 2017 EXAM PARAMETERS: Standard craniocaudal and mediolateral oblique views of each breast recorded using digital acquisition and breast tomosynthesis. Read with the assistance of CAD. .[facility] - [facility] Version 9.2 LIMITATIONS: None. FINDINGS: Findings present which are benign by mammographic criteria. No suspicious masses, calcific ations or architectural distortion. Pertinent benign findings: Scattered benign calcifications. Benign mammographic findings may include one or more of the following: Smooth masses, popcorn/rim/coa rse calcifications, asymmetries, post-procedure changes, and lesions with long-standing stability. IMPRESSION: BENIGN MAMMOGRAPHIC FINDINGS. BIRADS 2 BREAST DENSITY: b. There are scattered areas of fibroglandular density. BIRAD: ASSESSMENT: 2 BENIGN FINDING(S) RECOMMENDATION: ROUTINE SCREENING COMMENT: The patient has been notified of the results by letter per MQSA requirements. Additional no tification policies are in place for contacting patient with suspicious or incomplete findings. Quality ID #225: The [employer] recommends an annual screening mammogram for women aged 40 years or over. This facility utilizes a reminder system to ensure that all patients receive reminder letters, and/or direct phone calls for appointments. This includes reminders for routine scr eening mammograms, diagnostic mammograms, or other Breast Imaging Interventions when appropriate. Th is patient will be placed in the appropriate reminder system. TECHNICAL DOCUMENTATION: FINDING NUMBER: (1) ASSESSMENT: (1) JOB ID: [id number] [employer]- All Rights Reserved Reading location - IP/workstation name: [email or web address]
== END ==
LOC: WI 08:20
PROVIDERS: ATTEND Physician Assistant
DX: Z12.31 Encounter for screening mammogram for malignant neoplasm of breast (principal)
CPT/HCPCS: 77063; 77067

== ENCOUNTER 2019-06-15 17:16 | Emergency (ER) | payer MEDICARE ==
[2019-06-15] MEDS ORDERED: PENICILLIN V POTASSIUM 500 MG TABLET PO ONE (17:55)
[2019-06-15] MEDS ORDERED: HYDROCODONE/ACETAMINOPHEN 5-325 MG TABLET PO ONE (17:55)
[2019-06-15] MEDS ORDERED: OXYMETAZOLINE HCL 0.05% NASAL SPRAY 15 ML BOTTLE NASL ONE (17:56)
[2019-06-15] MEDS ORDERED: HYDROCODONE/ACETAMINOPHEN 5-325 MG (6 TAB/ER DISP) PO PRN (17:59)
--- NOTE | 2019-06-15 17:59 | ER Document Report ---
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 She states since the surgery 2 years ago she has had intermittent nosebleeds. Patient has a full bridge of the upper teeth as most of her teeth were resected. Patient voices she does have one tooth left on the top. She was able to take her bridge hours and notes some erythema potential "new tooth" bulging and. Patient voices this is causing her pain and irritation more so when she places her bridge and tries to eat. Patient voices she thought all of her teeth were removed. Patient voices "I think I am regrowing a tooth." Patient's denying any fevers. Patient's denying any current nosebleeds. States she was using Afrin in the past but states she no longer has it. - REPRODUCTIVE Reproductive: DENIES: : Past Medical History - General Information source: Patient, Relative - Social History Smoking Status: Unknown if Ever Smoked Family History: Reviewed & Not Pertinent Patient has suicidal ideation: No Patient has homicidal ideation: No - Past Medical History Cardiac Medical History: Reports: Hx Hypercholesterolemia, Hx Hypertension - MEDICATED Denies: Hx Heart Attack Pulmonary Medical History: Denies: Hx Asthma Neurological Medical History: Denies: Hx Cerebrovascular Accident, Hx Seizures Endocrine Medical History: Reports: Hx Diabetes Mellitus Type 2 Renal/ Medical History: Denies: Hx Peritoneal Dialysis GI Medical History: Denies: Hx Hepatitis, Hx Hiatal Hernia, Hx Ulcer Musculoskeletal Medical History: Reports Hx Arthritis Psychiatric Medical History: Denies: Hx Depression Infectious Medical History: Denies: Hx Hepatitis Past Surgical History: Reports: Hx Hysterectomy, Hx Nose Surgery - Cancer removal. Denies: Hx Mastectomy, Hx Open Heart Surgery, Hx Pacemaker - Immunizations Hx Diphtheria, Pertussis, Tetanus Vaccination: Yes Vertical Provider Document - CONSTITUTIONAL Agree With Documented VS: Yes Notes: GENERAL: Alert, interacts well. No acute distress. HEAD: Normocephalic, atraumatic. EYES: Pupils equal, round, and reactive to light. Extraocular movements intact. ENT: Oral mucosa moist, tongue midline. Nares patent, patient does have one tooth that does appear to be #11, right behind it there does appear some gum erythema with something white poking out. NECK: Full range of motion. Supple. Trachea midline. LUNGS: Clear to auscultation bilaterally, no wheezes, rales, or rhonchi. No respiratory distress. HEART: Regular rate and rhythm. No murmur ABDOMEN: Soft, non-tender. Non-distended. Bowel sounds present in all 4 quadrants. EXTREMITIES: Moves all 4 extremities spontaneously. No edema, normal radial and dorsalis pedis pulses bilaterally. No cyanosis. BACK: no cervical, thoracic, lumbar midline tenderness. No saddle anesthesia, normal distal neurovascular exam. NEUROLOGICAL: Alert and oriented x3. Normal speech. PSYCH: Normal affect, normal mood. SKIN: Warm, dry, normal turgor. No rashes or lesions noted. - INFECTION CONTROL TRAVEL OUTSIDE OF THE [place] IN LAST 30 DAYS: No Course - Re-evaluation Re-evalutation: I discussed with patient's her gum does appear irritated and erythematous. Nose no obvious fluctuance noted. I discussed use of antibiotics with close follow- up with the provider that gave her her bridge. Patient voices this dentist is in [place]. Patient voices she has not had any current nosebleeds but is stating that she lost the Afrin we had given her. Patient is requesting Afrin again in the emergency department. Otherwise patient stable for discharge. Discharge - Discharge Clinical Impression: Toothache, Epistaxis Condition: Stable Disposition: HOME, SELF-CARE Instructions: Nosebleed Instructions ([facility]), Oral Narcotic Medication ([facility]), Penicillin V K ([facility]), Toothache ([facility]) Additional Instructions: As we discussed you have been seen and treated in the emergency department for a potential tooth infection. Your gum does appear red and irritated. Please make sure you take antibiotics as prescribed. Please only use pain medication as needed. Please follow instructions for Diflucan (yeast infection medication) printed on prescription. Please make sure you follow-up with your dentist in the next 12 to 24 hours. Return to the emergency department for any concerns. Prescriptions: Fluconazole [Diflucan] 150 mg PO ONCE PRN #2 tablet PRN Reason: Penicillin V Potassium [Penicillin Vk 500 mg Tablet] 500 mg PO BID #20 tablet Referrals: INGRID DE JESUS PA [NO LOCAL MD] - Follow up as needed
== END 2019-06-15 18:02 | disposition home or self-care (01) ==
LOC: ER 17:16
DX: K08.9 Disorder of teeth and supporting structures, unspecified (principal); R04.0 Epistaxis; E78.00 Pure hypercholesterolemia, unspecified; I10 Essential (primary) hypertension; E11.9 Type 2 diabetes mellitus without complications
CPT/HCPCS: 99282; A9270 ×4; J3490

== ENCOUNTER 2019-06-18 23:41 | Emergency (ER) | payer MEDICARE ==
[2019-06-19] MEDS ORDERED: TRANEXAMIC ACID INJ/PF 1,000 MG/10 ML SDV IV ONE (01:41)
[2019-06-19] MEDS ORDERED: ACETAMINOPHEN 325 MG TABLET PO ONE (01:41)
--- NOTE | 2019-06-19 01:42 | ER Document Report ---
ED ENT - General Chief Complaint: Nose Bleed Stated Complaint: NOSEBLEEDS/HEADACHES Time Seen by Provider: 06/19/19 01:19 Primary Care Provider: CRISTOFER DÍAZ MD [Primary Care Provider] - Follow up in 3-5 days Notes: Patient is an 79-year-old female that comes emergency department for chief complaint of intermittent nosebleeds. She had a nosebleed this evening that lasted for 20 minutes despite aspirin and pressure so she came in for evaluation. Nosebleed did resolve before arrival to the emergency department. She also had a nosebleed this morning. She was seen a few days ago for this as well, placed on penicillin for dental/gum infection and given Afrin. 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 Patient also states that she was taking 200 mg of aspirin twice a day for the past 2 days instead of her usual Tylenol because she could not find her Tylenol that she takes for arthritis. She is not on any other blood thinners. She denies any current complaints. Family at bedside. TRAVEL OUTSIDE OF THE [place] IN LAST 30 DAYS: No - Related Data Allergies/Adverse Reactions: No Known Allergies Allergy (Verified 06/19/19 00:48) Home Medications: ibuprofen, ranitidine, amitriptyline, aspirin, hydralazine, klor-con, furosemide, lipitor, metformin, quinapril, amlodipine, iron, calcium + d, multivitamin Past Medical History - General Information source: Patient, Relative - Social History Smoking Status: Never Smoker Chew tobacco use (# tins/day): No Frequency of alcohol use: None Drug Abuse: None Lives with: Family Family History: Reviewed & Not Pertinent Patient has suicidal ideation: No Patient has homicidal ideation: No - Past Medical History Cardiac Medical History: Reports: Hx Hypercholesterolemia, Hx Hypertension - MEDICATED Denies: Hx Heart Attack Pulmonary Medical History: Denies: Hx Asthma Neurological Medical History: Denies: Hx Cerebrovascular Accident, Hx Seizures Endocrine Medical History: Reports: Hx Diabetes Mellitus Type 2 Renal/ Medical History: Denies: Hx Peritoneal Dialysis GI Medical History: Denies: Hx Hepatitis, Hx Hiatal Hernia, Hx Ulcer Musculoskeletal Medical History: Reports Hx Arthritis Psychiatric Medical History: Denies: Hx Depression Infectious Medical History: Denies: Hx Hepatitis Past Surgical History: Reports: Hx Hysterectomy, Hx Nose Surgery - Cancer removal. Denies: Hx Mastectomy, Hx Open Heart Surgery, Hx Pacemaker - Immunizations Hx Diphtheria, Pertussis, Tetanus Vaccination: Yes Review of Systems - Review of Systems Constitutional: No symptoms reported EENT: See HPI Cardiovascular: No symptoms reported Respiratory: No symptoms reported Gastrointestinal: No symptoms reported Genitourinary: No symptoms reported Female Genitourinary: No symptoms reported Musculoskeletal: No symptoms reported Skin: No symptoms reported Hematologic/Lymphatic: No symptoms reported Neurological/Psychological: No symptoms reported Physical Exam - Vital signs Vitals: Temp Pulse Resp BP Pulse Ox 97.3 F 88 18 111/60 97 06/18/19 23:49 06/18/19 23:49 06/18/19 23:49 06/18/19 23:49 06/18/19 23:49 - Notes Notes: GENERAL: Alert, interacts well. No acute distress. HEAD: Normocephalic, atraumatic. EYES: Pupils equal, round, and reactive to light. Extraocular movements intact. ENT: Oral mucosa moist, tongue midline. Airway patent. Patient has a very abnormal oral exam because she is missing the soft palate and hard palate, and her left nostril I can see that just inside and anterior there is an area that recently bled with a small clot and some surrounding irritation. No current bleeding noted. No sign of dental abscess noted. Unremarkable otherwise. NECK: Full range of motion. Supple. Trachea midline. LUNGS: Clear to auscultation bilaterally, no wheezes, rales, or rhonchi. No respiratory distress. HEART: Regular rate and rhythm. No murmur ABDOMEN: Soft, non-tender. Non-distended. EXTREMITIES: Moves all 4 extremities spontaneously. No edema, normal radial and dorsalis pedis pulses bilaterally. No cyanosis. BACK: no cervical, thoracic, lumbar midline tenderness. No saddle anesthesia, normal distal neurovascular exam. Moves all extremities in full range of motion. NEUROLOGICAL: Alert and oriented x3. Speech difficult to understand at baseline. Cranial nerves II through XII grossly intact. PSYCH: Normal affect, normal mood. SKIN: Warm, dry, normal turgor. No rashes or lesions noted. Course - Re-evaluation Re-evalutation: Patient has an obvious area where she bled from. She is very concerned about rebleeding. We took some TXA and sprayed it over the area but it is not currently bleeding even though it did recently bleed. Patient has no current complaints. Vital signs unremarkable. No significant blood loss reported, discussed laboratory work-up but this was deferred because she has no current symptoms. Discussed expectations, follow-up, and return precautions, provided her with Tylenol prescription and told her to stop taking the extra aspirin. Patient and family state appreciation and agreement. Stable at time of discharge. - Vital Signs Vital signs: Temp Pulse Resp BP Pulse Ox 97.9 F 90 19 129/75 H 100 06/19/19 02:38 06/19/19 02:38 06/19/19 02:38 06/19/19 02:38 06/19/19 02:38 Discharge - Discharge Clinical Impression: Epistaxis Condition: Stable Disposition: HOME, SELF-CARE Additional Instructions: Your evaluation is reassuring at this time, however there is a significant chance of re-bleeding following a nosebleed. Proper care makes this less likely. Do not touch the nose for 24 hours. Do not blow the nose forcefully for one week. After 24 hours, gently apply Vaseline or Bacitracin ointment to both nostrils with the tip of a finger or carefully with a Q tip, three times a day, for one week. It's normal to have a bloody mucous discharge for a few days. If active bleeding recurs, blow all the blood from the nose, then sit quietly and pinch the nose as firmly as possible for 10 minutes. You can use your Afrin as well. If this does not stop the bleeding, return for further care. Return for any other concerning symptoms. Prescriptions: Acetaminophen [Tylenol Extra Strength 500 mg Tablet] 1 tab PO Q6H PRN 10 Days #40 tab PRN Reason: Referrals: CRISTOFER DÍAZ MD [Primary Care Provider] - Follow up in 3-5 days
[2019-06-19 02:39] VITALS: BP 129/75
== END 2019-06-19 02:49 | disposition home or self-care (01) ==
LOC: ER 23:41
DX: R04.0 Epistaxis (principal); R51 Headache; E78.00 Pure hypercholesterolemia, unspecified; I10 Essential (primary) hypertension; E11.9 Type 2 diabetes mellitus without complications; Z90.710 Acquired absence of both cervix and uterus
CPT/HCPCS: A9270; J3490; 96374; 99283

== ENCOUNTER → 2019-07-05 | Outpatient (CLI) | payer MEDICARE ==
--- NOTE | 2019-07-05 09:27 | WOMENS IMAGING REPORT ---
EXAM DESCRIPTION: BONE DENSITY HIP/SPINE COMPLETED DATE/TIME: 07/05/2019 8:31 am REASON FOR STUDY: Z78.0 BONE DENSITY Z78.0 ASYMPTOMATIC MENOPAUSAL STATE COMPARISON: 04/22/2017 TECHNIQUE: Dual-Energy X-ray Absorptiometry (DEXA) of the AP Spine and Hip. LIMITATIONS: None. FINDINGS: LUMBAR SPINE: The bone mineral density (BMD) measured from L1-L4 in the AP projection correlates with a T-score of 2.6, which is normal as defined by the World Health Organization. BMD Change vs Baseline: 6.2% HIP: The bone mineral density (BMD) measured in the left hip correlates with a T-score of -1.2 in the neck , which is osteopenia as defined by the World Health Organization. BMD Change vs Baseline: 7.5% 10 year Fracture Risk Assessment: Major Osteoporotic Fracture: 6.1% without prior fracture. 9.1% with prior fracture. Hip Fracture: 1.1% without prior fracture. 1.5% with prior fracture. IMPRESSION: 1. LUMBAR SPINE WHO CLASSIFICATION: NORMAL. 2. HIP WHO CLASSIFICATION: OSTEOPENIA. OVERALL ASSESSMENT: WHO CLASSIFICATION: OSTEOPENIA. COMMENT: The World Health Organization defines low BMD as follows: T-score: Normal: Greater than -1.0 Osteopenia: Between -1.0 and -2.5 Osteoporosis: Less than -2.5 without fractures Established osteoporosis: Less than -2.5 with fractures In general, you may wish to consider: Diagnosis Treatment Follow-up DEXA Normal BMD Prevention 2-3 years Osteopenia Prevention/Therapy 1-2 years Osteoporosis Therapy Yearly TECHNICAL DOCUMENTATION: JOB ID: [id number] [employer]- All Rights Reserved Reading location - IP/workstation name: [email or web address]
== END ==
LOC: WI 08:00
PROVIDERS: ATTEND Family Medicine
DX: M85.88 Other specified disorders of bone density and structure, other site (principal); Z78.0 Asymptomatic menopausal state
CPT/HCPCS: 77080

== ENCOUNTER → 2019-07-07 | Outpatient (CLI) | payer MEDICARE ==
--- NOTE | 2019-07-07 13:28 | RADIOLOGY REPORT (SQ) ---
EXAM DESCRIPTION: MRI HEAD WITHOUT COMPLETED DATE/TIME: 07/07/2019 7:51 am REASON FOR STUDY: OTHER AMNESIA R41.3 OTHER AMNESIA COMPARISON: None. TECHNIQUE: Multiplanar imaging includes non-contrasted T1, T2, FLAIR, and diffusion with ADC map seq uences. Images stored on PACS. LIMITATIONS: Motion artifact. FINDINGS: ANATOMY: No anomalies. Normal vascular flow voids. Pituitary fossa normal. CSF SPACES: Atrophy induced prominence of ventricles and CSF spaces. CEREBRUM: High signal intensity lesions scattered throughout the white matter on FLAIR imaging with d istribution suggesting micro-vascular ischemic changes. No evidence of hemorrhage, mass, or extraaxi al fluid collection. POSTERIOR FOSSA: No signal alteration. No hemorrhage. No edema, masses or mass effect. Internal opal tory canals, cerebello-pontine angles, mastoids normal. DIFFUSION IMAGING: Negative for acute or sub-acute infarction. ORBITS: No masses. Globes normal. PARANASAL SINUSES: Chronic beltrán sinusitis. Defect medial right maxillary sinus wall. OTHER: No other significant finding. IMPRESSION: Chronic ischemic changes. EVIDENCE OF ACUTE STROKE: NO. TECHNICAL DOCUMENTATION: JOB ID: [id number] [employer]- All Rights Reserved Reading location - IP/workstation name: [email or web address]
== END ==
LOC: RAD 06:56
PROVIDERS: ATTEND Physician Assistant
DX: R41.3 Other amnesia (principal)
CPT/HCPCS: 70551

== ENCOUNTER → 2020-04-30 | Outpatient (CLI) | payer MEDICARE ==
--- NOTE | 2020-04-30 15:14 | WOMENS IMAGING REPORT ---
EXAM DESCRIPTION: BILAT SCREENING MAMMO W/CAD IMAGES COMPLETED DATE/TIME: 04/30/2020 8:33 am REASON FOR STUDY: Z12.31 ENCNTR SCREEN MAMMOGRAM FOR MALIGNANT NEOPLASM OF BREAST Z12.31 ENCNTR SCR EEN MAMMOGRAM FOR MALIGNANT NEOPLASM OF MELISSA COMPARISON: 2016 to 2018 EXAM PARAMETERS: Standard craniocaudal and mediolateral oblique views of each breast recorded using digital acquisition. Read with the assistance of CAD. .[facility] - [employer] Project Manager Version 9.2 LIMITATIONS: None. FINDINGS: No suspicious masses, suspicious calcifications or architectural distortion. No areas of c oncern. IMPRESSION: NEGATIVE MAMMOGRAM. BIRADS 1 BREAST DENSITY: b. There are scattered areas of fibroglandular density. BIRAD: ASSESSMENT: 1 NEGATIVE RECOMMENDATION: ROUTINE SCREENING COMMENT: The patient has been notified of the results by letter per MQSA requirements. Additional no tification policies are in place for contacting patient with suspicious or incomplete findings. Quality ID #225: The [employer] recommends an annual screening mammogram for women aged 40 years or over. This facility utilizes a reminder system to ensure that all patients receive reminder letters, and/or direct phone calls for appointments. This includes reminders for routine scr eening mammograms, diagnostic mammograms, or other Breast Imaging Interventions when appropriate. Th is patient will be placed in the appropriate reminder system. TECHNICAL DOCUMENTATION: FINDING NUMBER: (1) ASSESSMENT: (1) JOB ID: [id number] 2010 [employer]- All Rights Reserved Reading location - IP/workstation name: [email or web address]
== END ==
LOC: WI 08:03
PROVIDERS: ATTEND Physician Assistant
DX: Z12.31 Encounter for screening mammogram for malignant neoplasm of breast (principal)
CPT/HCPCS: 77067

== ENCOUNTER 2020-08-02 14:37 | Emergency (ER) | payer MEDICARE ==
[2020-08-02 15:13] LABS: ABSOLUTE EOSINOPHILS # (AUTO) 0.1 10^3/uL (0.0-0.6); ABSOLUTE LYMPHOCYTES (AUTO) 0.3 10^3/uL (0.5-4.7); ABSOLUTE MONOCYTES (AUTO) 0.8 10^3/uL (0.1-1.4); ABSOLUTE NEUT (AUTO) 4.9 10^3/uL (1.7-8.2); BASOPHILS % (AUTO) 0.3 % (0-2); HEMATOCRIT 24.7 % (36.0-47.0); LYMPHOCYTES % (AUTO) 5.2 % (13-45); MEAN CORPUSCULAR HEMOGLOBIN 27.3 pg (27.0-33.4); MEAN CORPUSCULAR HGB CONC 31.7 g/dL (32.0-36.0); MEAN CORPUSCULAR VOLUME 86 fl (80-97); MONOCYTES % (AUTO) 12.5 % (3-13); PLATELET COUNT 504 10^3/uL (150-450); RED BLOOD COUNT 2.86 10^6/uL (3.72-5.28); RED CELL DISTRIBUTION WIDTH 18.7 % (11.5-14.0); TOTAL CELLS COUNTED % (AUTO) 100 %
[2020-08-02 15:16] LABS: HEMOGLOBIN 7.8 g/dL (12.0-15.5)
[2020-08-02 15:19] LABS: ALBUMIN 3.3 g/dL (3.5-5.0); ALKALINE PHOSPHATASE 153 U/L (38-126); ANION GAP 10 (5-19); ASPARTATE AMINO TRANSFERASE 19 U/L (14-36); BILIRUBIN,DIRECT 0.3 mg/dL (0.0-0.4); BILIRUBIN,TOTAL 0.4 mg/dL (0.2-1.3); BLOOD UREA NITROGEN 19 mg/dL (7-20); CARBON DIOXIDE 22 mmol/L (22-30); CHLORIDE 107 mmol/L (98-107); GLUCOSE 80 mg/dL (75-110); TOTAL PROTEIN 6.6 g/dL (6.3-8.2)
--- NOTE | 2020-08-02 16:35 | ER Document Report ---
ED General - General Chief Complaint: Altered Mental Status Stated Complaint: AMS Time Seen by Provider: 08/02/20 16:31 Primary Care Provider: CRISTOFER DÍAZ MD [Primary Care Provider] - Follow up as needed Information source: Patient, Relative TRAVEL OUTSIDE OF THE [place] IN LAST 30 DAYS: No - HPI Notes: Mrs. Martinez is a very pleasant 80-year-old female who unfortunately just lost her last night. She was on her way to make arrangements with her daughter when she began having garbled speech. She was aware that her speech was garbled but she was having trouble understanding what her daughter was saying to her as well as communicating with her. This episode lasted for less than an hour and now has resolved completely. The patient has never had anything like this before. She denies any other changes in her vision hearing or swallowing. She has no motor symptoms whatsoever. She has no sensory symptoms. She has no headache. She has not experienced any syncope or head trauma. She has no history of seizures. She has no history of CVA or TIA in the past. She had fairly recently recovered from COVID-19 herself. She is ot herlodi in her usual state of health. - Related Data Allergies/Adverse Reactions: No Known Allergies Allergy (Verified 06/19/19 00:48) Home Medications: Amlodopine, Gemfibrozil, Hydralazine, Metformin, Omeprazole Past Medical History - General Information source: Patient - Social History Smoking Status: Unknown if Ever Smoked Family History: Reviewed & Not Pertinent - Medical History Medical History: Other Notes: Past medical history as documented in electronic health record is reviewed. - Past Medical History Cardiac Medical History: Reports: Hx Hypercholesterolemia, Hx Hypertension - MEDICATED Denies: Hx Heart Attack Pulmonary Medical History: Denies: Hx Asthma Neurological Medical History: Denies: Hx Cerebrovascular Accident, Hx Seizures Endocrine Medical History: Reports: Hx Diabetes Mellitus Type 2 Renal/ Medical History: Denies: Hx Peritoneal Dialysis GI Medical History: Denies: Hx Hepatitis, Hx Hiatal Hernia, Hx Ulcer Musculoskeletal Medical History: Reports Hx Arthritis Psychiatric Medical History: Denies: Hx Depression Infectious Medical History: Denies: Hx Hepatitis Past Surgical History: Reports: Hx Hysterectomy, Hx Nose Surgery - Cancer removal. Denies: Hx Mastectomy, Hx Open Heart Surgery, Hx Pacemaker - Immunizations Hx Diphtheria, Pertussis, Tetanus Vaccination: Yes Review of Systems - Review of Systems Notes: All other systems are reviewed and are negative or noncontributory except on the present illness. Physical Exam - Vital signs Vitals: Resp Pulse Ox 21 H 98 08/02/20 15:01 08/02/20 15:01 - Notes Notes: General: This is a well-developed well-nourished female no acute distress. Inessa l signs and nursing chief complaint are reviewed. HEENT: Normocephalic atraumatic. EOMI. PERRLA. Patient has some edema of her right lower lip but no edema of her tongue or oral cavity or oropharynx. Neck: Supple nontender no adenopathy. Chest: Normal configuration lungs clear to auscultation. Heart: Regular rate and rhythm no murmur. Abdomen: Soft nontender no muscular rigidity or guarding. Extremities: Without clubbing cyanosis or edema. Skin: Warm moist good turgor no rashes. Neuro: Patient is awake alert fully oriented. Cranial nerves II through XII are intact bilaterally. Strength is 5/5 in all groups. Gait and station were not formally tested. Course - Re-evaluation Re-evalutation: 08/03/20 02:56 The patient remained stable and asymptomatic except for her mild angioedema of the right lower lip. Her dry CT was unremarkable. Her CTA of the head and neck showed no evidence of hemorrhage or aneurysm. She had somewhat tortuous but nonstenotic carotid arteries. EKG showed normal sinus rhythm. Balance of her laboratory studies were normal or nondiagnostic. Once everything was back I felt it was safe to discharge her home. She can follow-up with her primary care doctor in the next few days to get an echocardiogram done. I emphasized to her and her daughter both that if her symptoms recurred she should return to the emergency department immediately. - Vital Signs Vital signs: Temp Pulse Resp BP Pulse Ox 98.4 F 94 22 H 105/70 95 08/02/20 22:58 08/02/20 20:48 08/02/20 22:01 08/02/20 22:02 08/02/20 22:02 - Laboratory Results Result Diagrams: 08/02/20 14:52 08/02/20 14:52 Laboratory Results Interpreted: 08/02/20 08/02/20 08/02/20 10:34 14:52 14:52 RBC 2.86 L Hgb 7.8 L Hct 24.7 L MCHC 31.7 L RDW 18.7 H Plt Count 504 H Lymph % (Auto) 5.2 L Absolute Lymphs (auto) 0.3 L Seg Neutrophils % 81.0 H Magnesium 1.3 L Alkaline Phosphatase 153 H Albumin 3.3 L Ur Leukocyte Esterase SMALL H Critical Laboratory Results Reviewed: No Critical Results - Radiology Results Critical Radiology Results Reviewed: No Critical Results Discharge - Discharge Clinical Impression: TIA (transient ischemic attack) Condition: Good Disposition: HOME, SELF-CARE Instructions: Transient Ischemic Attack ([facility]) Additional Instructions: Take a full dose 325 mg aspirin daily. You can take 1 regular strength aspirin or for low-dose aspirin. Continue all your other medications as prescribed. Call your doctor and make an appointment to be seen in the next few days for follow-up. Tell them you were in the emergency department. One of the test your doctor should order is an echocardiogram which is an ultrasound of your heart to make sure that it is working correctly. Other tests may be necessary. Return to the emergency department immediately if your symptoms recur or if any other concerning symptoms develop. Referrals: CRISTOFER DÍAZ MD [Primary Care Provider] - Follow up as needed
[2020-08-02] MEDS: MAGNESIUM SULFATE/D5W 1 GM/100 ML RTUPB IV SCH ×2 (17:06→20:48)
--- NOTE | 2020-08-02 17:47 | RADIOLOGY REPORT (SQ) ---
EXAM DESCRIPTION: CT HEAD WITHOUT IMAGES COMPLETED DATE/TIME: 08/02/2020 5:27 pm REASON FOR STUDY: Stroke symptoms COMPARISON: MR head 07/07/2019 TECHNIQUE: Axial images acquired through the brain without intravenous contrast. Images reviewed wi th bone, brain and subdural windows. Additional sagittal and coronal reconstructions were generated. Images stored on PACS. All CT scanners at this facility use dose modulation, iterative reconstruction, and/or weight based d osing when appropriate to reduce radiation dose to as low as reasonably achievable (ALARA). [facility]: Dose Right [facility]: CareDose [facility]: Dose Right [facility]: Teradose 4D [facility]: Smart [place] RADIATION DOSE: CT Rad equipment meets quality standard of care and radiation dose reduction techniq ues were employed. CTDIvol: 53.2 mGy. DLP: 1044 mGy-cm. mGy. LIMITATIONS: None. FINDINGS: VENTRICLES: Normal size and contour. CEREBRUM: No masses. No hemorrhage. No midline shift. No evidence for acute infarction. Areas of l ow density in the white matter most likely chronic small vessel ischemic changes. CEREBELLUM: No masses. No hemorrhage. No alteration of density. No evidence for acute infarction. EXTRAAXIAL SPACES: No fluid collections. No masses. ORBITS AND GLOBE: No intra- or extraconal masses. Normal contour of globe without masses. CALVARIUM: No fracture. PARANASAL SINUSES: Resection of the medial wall of the right maxillary sinus. Opacification of the l eft maxillary sinus and some of the left ethmoid air cells. SOFT TISSUES: No mass or hematoma. OTHER: No other significant finding. IMPRESSION: Chronic microvascular ischemia. Sinus disease. No acute intracranial imaging findings. EVIDENCE OF ACUTE STROKE: NO. COMMENT: Quality ID # [id number]: Final reports with documentation of one or more dose reduction techniques (e.g., Automated exposure control, adjustment of the mA and/or kV according to patient size, use of iterative reconstruction technique) TECHNICAL DOCUMENTATION: JOB ID: [id number] 2010 [employer]- All Rights Reserved Reading location - IP/workstation name: [email or web address]
--- NOTE | 2020-08-02 18:42 | RADIOLOGY REPORT (SQ) ---
EXAM DESCRIPTION: CTA NECK IMAGES COMPLETED DATE/TIME: 08/02/2020 6:31 pm REASON FOR STUDY: TIA, poss CVA COMPARISON: None. TECHNIQUE: Axial dynamic scanning technique with dynamic contrast enhancement through the extra-crate builder nial carotid and vertebral arteries. Multiplanar reconstruction. 3-D MIPS and Volume-rendered imag es acquired at the workstation and saved to PACS. Images are reviewed in soft tissue, bone, lung w indows. All CT scanners at this facility use dose modulation, iterative reconstruction, and/or weight based d osing when appropriate to reduce radiation dose to as low as reasonably achievable (ALARA). [facility]: Dose Right [facility]: CareDose [facility]: Dose Right [facility]: Teradose 4D [facility]: InfraReDx CONTRAST TYPE AND DOSE: 70 mL Omnipaque 350- low osmolar. RENAL FUNCTION: BUN 19 creatinine 0.67 LIMITATIONS: None. FINDINGS: AORTIC ARCH: Normal three-vessel origin. Bilateral subclavian arteries are patent. No d issection. RIGHT CAROTIDS: Patent common, internal and external carotid arteries without suggestion of significa nt stenosis. There is a small amount of plaque at the origin of the ICA. No dissection. Tortuous I CA. RIGHT VERTEBRAL: Patent. No dissection. LEFT CAROTIDS: Patent common, internal and external carotid arteries without suggestion of significan t stenosis. There is a small amount of plaque at the origin of the ICA. No dissection. Tortuous IC A. LEFT VERTEBRAL: Patent. No dissection. OTHER: No other significant finding. OTHER: 3-D reconstructions confirm findings. IMPRESSION: Mild atherosclerotic changes. Tortuous internal carotid arteries. No significant steno ses. COMMENT: Quality ID #[id number]: Measurements of distal internal carotid diameter were used as the denomina tor for stenosis measurement. TECHNICAL DOCUMENTATION: JOB ID: [id number] Quality ID # [id number]: Final reports with documentation of one or more dose reduction techniques (e.g., Au tomated exposure control, adjustment of the mA and/or kV according to patient size, use of iterative reconstruction technique) 2010 [employer]- All Rights Reserved Reading location - IP/workstation name: [email or web address]
--- NOTE | 2020-08-02 18:45 | RADIOLOGY REPORT (SQ) ---
EXAM DESCRIPTION: CTA HEAD IMAGES COMPLETED DATE/TIME: 08/02/2020 6:31 pm REASON FOR STUDY: TIA, poss CVA COMPARISON: None. TECHNIQUE: Post IV contrast scanning, thin section axial imaging through the brain to evaluate the a rterial structures. Source and MIP images are saved and reviewed on PACS. Advanced 3D imaging as volume-rendering, MIPs, SSD performed? yes All CT scanners at this facility use dose modulation, iterative reconstruction, and/or weight based d osing when appropriate to reduce radiation dose to as low as reasonably achievable (ALARA). [facility]: Dose Right [facility]: CareDose [facility]: Dose Right [facility]: Teradose 4D [facility]: DoubleVerify CONTRAST TYPE AND DOSE: contrast/concentration: Isovue 350.00 mmol/ml; Total Contrast Delivered: 70. 0 ml; Total Saline Delivered: 75.0 ml RENAL FUNCTION: BUN 19 creatinine 0.67 LIMITATIONS: None. FINDINGS: TRIBAL OF CALVERT: The anterior, middle, posterior cerebral arteries are all patent. No ev idence of aneurysm or focal stenosis. POSTERIOR CIRCULATION: The distal vertebral arteries are patent as is the basilar artery. No aneurysm . BRAIN: No gross enhancing lesions as visualized. The superior cerebral hemispheres are not included in the field of view. BONES: Intact as visualized. SINUSES: No fluid or mucosal thickening. OTHER: No other significant finding. IMPRESSION: NO CTA EVIDENCE OF STENOSIS OR ANEURYSM OF THE TRIBAL OF CALVERT. TECHNICAL DOCUMENTATION: JOB ID: [id number] Quality ID # [id number]: Final reports with documentation of one or more dose reduction techniques (e.g., Au tomated exposure control, adjustment of the mA and/or kV according to patient size, use of iterative reconstruction technique) 2010 [employer]- All Rights Reserved Reading location - IP/workstation name: [email or web address]
[2020-08-02] MEDS ORDERED: DIPHENHYDRAMINE HCL 25 MG CAPSULE PO ONE (20:15)
[2020-08-02 21:07] LABS: APPEARANCE,URINE CLEAR; BILIRUBIN,URINE NEGATIVE (NEGATIVE); COLOR,URINE STRAW; GLUCOSE, URINE NEGATIVE (NEGATIVE); KETONES,URINE NEGATIVE (NEGATIVE); LEUKOCYTE ESTERASE,URINE SMALL (NEGATIVE); NITRITE,URINE NEGATIVE (NEGATIVE); PROTEIN,URINE NEGATIVE (NEGATIVE); URINE SPECIFIC GRAVITY 1.032; UROBILINOGEN,URINE NEGATIVE mg/dL (<2.0)
[2020-08-02 21:22] LABS: URINE AMPHETAMINES SCREEN NEGATIVE; URINE BARBITURATES SCREEN NEGATIVE; URINE BENZODIAZEPINES SCREEN NEGATIVE; URINE COCAINE SCREEN NEGATIVE; URINE MARIJUANA (THC) SCREEN NEGATIVE; URINE METHADONE SCREEN NEGATIVE; URINE PHENCYCLIDINE SCREEN NEGATIVE
[2020-08-02 22:46] VITALS: BP 105/70
--- NOTE | 2020-08-02 23:42 | EKG REPORT ---
SEVERITY:- BORDERLINE ECG - SINUS RHYTHM PROBABLE LEFT ATRIAL ABNORMALITY BORDERLINE LEFT AXIS DEVIATION : Confirmed by: Isabell Mcconnell 02-Aug-2020 23:41:28
== END 2020-08-02 22:59 | disposition home or self-care (01) ==
LOC: ER 14:37
DX: G45.9 Transient cerebral ischemic attack, unspecified (principal); R41.82 Altered mental status, unspecified; E78.00 Pure hypercholesterolemia, unspecified; I10 Essential (primary) hypertension; E11.9 Type 2 diabetes mellitus without complications; Z86.16 Personal history of COVID-19; Z79.84 Long term (current) use of oral hypoglycemic drugs
CPT/HCPCS: 93005; 99285; 96365; 96366; 86900; 86901; 36415; 87086; 86850; 82962; 83735; 85025; 87088; 80053; 81001; 87186; 80307; 70450; 70496; 70498; 93010; A9270; J3475